=== PATIENT | male | born 1940 | race Caucasian/White ===

== ENCOUNTER 2017-10-07 11:47 | Observation (INO) | payer MEDICARE, OTHER ==
[2017-10-07] MEDS ORDERED: Atropine Sulfate 1 mg/10 ml Syringe ONE (11:59)
[2017-10-07 12:58] LABS: #Eosinphils 0.1 thou/uL (0.0-0.7); #Lymphocytes 0.8 thou/uL (1.20-3.40); #Monocytes 0.4 thou/uL (0.11-0.59); %Basophils 0.3 % (0.0-1.0); %Eosinophils 1.2 % (0.0-10.0); %Lymphocytes 12.7 % (21.0-51.0); %Monocytes 6.3 % (0.0-10.0); %Neutrophils 79.4 % (42.0-75.0); Hemoglobin 12.5 g/dL (14.0-18.0); Mean Corpuscular Hemoglobin 29.8 pg (27.0-31.0); Mean Corpuscular Volume 87.5 fL (78.0-98.0); Mean Platelet Volume 7.1 fL (7.4-10.4); Platelet Count 155 thou/uL (130-400); RBC Distribution Width 13.8 % (11.5-14.5); Red Blood Cell (RBC) Count 4.19 mill/uL (4.70-6.10); White Blood Cell (WBC) Count 6.3 thou/uL (4.8-10.8)
[2017-10-07 13:17] LABS: ALT (SGPT) Less than 7 U/L (8-55); AST (SGOT) 23 U/L (5-34); Albumin 3.8 g/dL (3.4-4.8); Alkaline Phosphatase 29 U/L (40-150); Anion Gap 12 mmol/L (10-20); BUN (Urea Nitrogen) 20 mg/dL (8.4-25.7); Bilirubin, Total 0.8 mg/dL (0.2-1.2); CK (CPK) 52 U/L (30-200); Calc. Creatinine Clearance 0 mL/min (70-130); Calcium 9.3 mg/dL (7.8-10.44); Carbon Dioxide 22 mmol/L (23-31); Chloride 102 mmol/L (98-107); Estimated GFR-MDRD 69; Globulin 2.8 g/dL (2.4-3.5); Glucose 95 mg/dL (83-110); Potassium 4.2 mmol/L (3.5-5.1); Protein, Total 6.6 g/dL (5.8-8.1); Sodium 132 mmol/L (136-145)
[2017-10-07 13:21] LABS: CKMB 1.8 ng/mL (0-6.6); Troponin I Less than 0.010 ng/mL (< 0.028)
--- NOTE | 2017-10-07 14:55 | CT ---
CT BRAIN WITHOUT CONTRAST: Date: 10/07/17 INDICATION: Syncope and weakness. COMPARISON: Prior exam dated 08/13/15. FINDINGS: No acute infarct, hemorrhage, or hydrocephalus is present. Septum pellucidum and third ventricle are midline. The skull and extracranial soft tissues are unremarkable. Mastoid air cells and paranasal si nuses are clear. Skull is intact. IMPRESSION: No acute intracranial abnormality. POS: [facility]
[2017-10-07 15:12] LABS: Acetaminophen Less than 6.0 mcg/mL (10.0-30.0); Alcohol Less than 10 mg/dL (Less than 10); Salicylate Less than 8.0 mg/dL (15.0-30.0)
--- NOTE | 2017-10-07 15:38 | RAD ---
AP VIEW OF THE CHEST: 10/07/17 INDICATION: History of syncope. COMPARISON: Prior exam dated 05/08/07. IMPRESSION: There is mild cardiomegaly. There is mild subsegmental atelectasis left lower lobe. Right lung is nick ar. There are mild vascular calcifications involving the thoracic aorta. No acute osseous abnormaliti es noted. POS: [facility]
[2017-10-07 16:41] LABS: Bilirubin Negative (Negative); Blood, Urine Negative (Negative); Clarity CLEAR (Clear); Glucose, Urine (Dipstick) Negative (Negative); Leukocyte Negative (Negative); Nitrite Negative (Negative); Protein, Urine (Dipstick) Negative (Neg-Trace); Specific Gravity, Urine 1.014 (1.002-1.036); pH, Urine 6.5 (5.0-9.0)
[2017-10-07] MEDS ORDERED: Dextrose 5% in Water 1,000 ML IV PRN (16:48)
[2017-10-07] MEDS ORDERED: HumaLOG 300 UNITS/3 ML VIAL SC PRN (16:48)
[2017-10-07] MEDS ORDERED: Acetaminophen 325 MG TAB PO PRN (16:48)
[2017-10-07] MEDS ORDERED: Dextrose 50% Abboject 50 ML SYRINGE SLOW IVP PRN (16:48)
[2017-10-07] MEDS ORDERED: Bisacodyl 5 MG TAB PO PRN (16:48)
[2017-10-07] MEDS ORDERED: Acetaminophen 650 MG Suppository PR PRN (16:48)
[2017-10-07 16:50] LABS: Amphetamine Not Detected (NotDetected); Barbiturates Screen Not Detected (NotDetected); Benzodiazepine Screen Not Detected (NotDetected); Cocaine Metabolite Screen Not Detected (NotDetected); Medtox Control Line Valid? VALID (VALID); Medtox Reader # READER 4; Methadone Not Detected (NotDetected); Methamphetamine Not Detected (NotDetected); Opiate Screen Not Detected (NotDetected); Oxycodone Screen Not Detected (NotDetected); Phencyclidine (PCP) Not Detected (NotDetected); THC/Cannabinoid Screen Not Detected (NotDetected); Tricyclic Screen Not Detected (NotDetected)
[2017-10-07 16:53] LABS: Troponin I Less than 0.010 ng/mL (< 0.028)
[2017-10-07] MEDS ORDERED: hydrALAZINE 20 MG/ML VIAL SLOW IVP PRN (17:03)
--- NOTE | 2017-10-07 17:21 | HP ---
CHIEF COMPLAINT: Syncope. PRIMARY CARE PROVIDER: Clark Luciano M.D. HISTORY OF PRESENT ILLNESS: Mr. Florez is a pleasant 77-year-old gentleman who was seen at [facility] on 10/07/2017. He was at get together around 11:00 a.m. today. He was sitting for a while on his walker. The cerem farhat was indoors. At the end of ceremony, he stood up. He felt very wobbly. He was eased into a carmelita ir. His eyes were rolled back. He was unconscious for approximately a minute. There is no history of any head trauma. There is no history of any tonic-clonic activity or urinary or fecal incontinenc e. He was therefore brought to the emergency room. He is currently feeling better. He recently started working with the physiotherapist. His heart rate is usually in the 50-60 range a t home. There has been no recent change to his home medications. He had a similar episode about 2 or 3 years ago. REVIEW OF SYSTEMS: All other systems reviewed and found to be negative. PAST MEDICAL HISTORY: Significant for diabetes mellitus type 2, hypertension, Parkinson's disease. PAST SURGICAL HISTORY: Right foot reconstruction and skin cancer removal from scalp. PSYCHIATRIC HISTORY: None. SOCIAL HISTORY: The patient reports occasional alcohol use. He denies any tobacco use or recreation al drug use. FAMILY HISTORY: No family history of premature coronary artery disease. ALLERGIES: PENICILLIN. CURRENT MEDICATIONS: Valsartan/hydrochlorothiazide 80/6.25 mg daily, carbidopa/levodopa 25/100 mg ta blets, 2.5 tablets 4 times a day, metoprolol succinate 50 mg daily, metformin 1000 mg 2 times a day, tamsulosin 0.4 mg daily. CODE STATUS: I discussed his code status. He is DNR. PHYSICAL EXAMINATION: GENERAL: Mr. Florez is awake and alert, not in acute distress. VITAL SIGNS: He is afebrile. Blood pressure is 136/61, pulse 63, respiratory rate 24, and oxygen sa turation 98% on room air. He is afebrile. When he presented to the emergency room, he had a pulse o f 45. EYES: No scleral icterus. No conjunctival pallor. ENT: Moist mucosal membranes, no oropharyngeal erythema or exudate. NECK: Supple, nontender, trachea is midline. RESPIRATORY: Accessory muscles of breathing are not active. Chest wall movements are symmetric bila terally. Lungs are clear to auscultation without wheeze, rhonchi or crepitations. CARDIOVASCULAR: S1 and S2 are heard, regular. Peripheral pulses palpable. No carotid bruit, no per icardial rub. ABDOMEN: Soft, nontender, bowel sounds are heard, no hepatomegaly, no splenomegaly. NEUROLOGIC: Cranial nerves II-XII intact, parkinsonian tremor present. MUSCULOSKELETAL: Power is 5/5 in all 4 extremities. SKIN: No rashes or subcutaneous nodules. LYMPHATIC: No cervical lymphadenopathy. PSYCHIATRIC: Normal mood, normal affect, patient is oriented to person, place, and time. LABORATORY DATA: Mr. Florez' labs and investigations were reviewed. I reviewed his electrocardiogra m, which shows sinus bradycardia with heart rate of 43, no ST changes to suggest an acute coronary sy ndrome. I also reviewed his chest x-ray, which does not show any pulmonary infiltrates. He has mild cardiomegaly. He also had noncontrast CT scan of the brain, which does not show any acute intracran ial abnormality. He has normal white count, normocytic anemia with hemoglobin 12.5, normal platelet count, hyponatremia with sodium of 132, mildly decreased carbon dioxide of 22, otherwise unremarkable comprehensive metabolic profile, normal troponin I x2, urinalysis positive for urobilinogen, negativ e for nitrites and leukocyte esterase and negative urine toxicology screen. ASSESSMENT AND PLAN: Mr. Florez is a pleasant 77-year-old gentleman who was seen at [facility] on 10/07/2017. His problem list includes: 1. Syncope: Likely secondary to bradycardia. Mr. Florez will be admitted to the hospital for [facility] er management, including telemetry monitoring. 2. Symptomatic bradycardia: Likely secondary to beta danya use. I will hold metoprolol. Cardiol ogy Service is also being consulted for opinion and help with management. 3. Diabetes mellitus type 2: Start Accu-Cheks and insulin sliding scale, continue metformin. 4. Parkinson's disease. Appears to be stable. Resume carbidopa/levodopa. 5. Hypertension: Beta danya is being held. Monitor vital signs and titrate antihypertensives as needed. LEVEL OF RISK: High. LEVEL OF COMPLEXITY: High.
[2017-10-07] MEDS: Carbidopa/Levodopa 25-100 mg Tablet PO SCH ×2 (18:18→21:23)
[2017-10-07 18:30] VITALS: BMI 24.5
[2017-10-07] MEDS: metFORMIN 500 MG TAB PO SCH (18:31)
[2017-10-07 19:38] LABS: Troponin I 0.021 ng/mL (< 0.028)
[2017-10-07 22:30] LABS: Troponin I 0.026 ng/mL (< 0.028)
[2017-10-08 05:24] LABS: #Eosinphils 0.1 thou/uL (0.0-0.7); #Lymphocytes 1.4 thou/uL (1.20-3.40); #Monocytes 0.5 thou/uL (0.11-0.59); #Neutrophils 2.9 thou/uL (1.40-6.50); %Basophils 0.2 % (0.0-1.0); %Eosinophils 2.7 % (0.0-10.0); %Lymphocytes 28.3 % (21.0-51.0); %Monocytes 9.6 % (0.0-10.0); %Neutrophils 59.2 % (42.0-75.0); Hemoglobin 11.2 g/dL (14.0-18.0); Mean Corpuscular HGB CONC 34.1 g/dL (32.0-36.0); Mean Corpuscular Hemoglobin 29.9 pg (27.0-31.0); Mean Corpuscular Volume 87.6 fL (78.0-98.0); Mean Platelet Volume 7.3 fL (7.4-10.4); Platelet Count 145 thou/uL (130-400); RBC Distribution Width 13.6 % (11.5-14.5); Red Blood Cell (RBC) Count 3.74 mill/uL (4.70-6.10); White Blood Cell (WBC) Count 4.8 thou/uL (4.8-10.8)
[2017-10-08 05:45] LABS: Anion Gap 11 mmol/L (10-20); BUN (Urea Nitrogen) 18 mg/dL (8.4-25.7); Calc. Creatinine Clearance 83 mL/min (70-130); Carbon Dioxide 22 mmol/L (23-31); Chloride 104 mmol/L (98-107); Estimated GFR-MDRD 83; Glucose 82 mg/dL (83-110); Potassium 3.7 mmol/L (3.5-5.1); Sodium 133 mmol/L (136-145)
[2017-10-08] MEDS: metFORMIN 500 MG TAB PO SCH ×2 (08:25→16:52)
[2017-10-08] MEDS: Carbidopa/Levodopa 25-100 mg Tablet PO SCH ×3 (08:26→16:51)
[2017-10-08] MEDS ORDERED: Hydrochlorothiazide 25 MG TAB PO SCH (09:00)
[2017-10-08] MEDS ORDERED: Valsartan 80 MG TAB PO SCH (09:00)
[2017-10-08] MEDS ORDERED: Tamsulosin HCl 0.4 MG CAP PO SCH (09:00)
--- NOTE | 2017-10-08 15:46 | PDOC.PN ---
- Subjective Encounter Start Date: 10/08/17 Encounter Start Time: 15:41 Pt seen for followup re: syncope. Denies chest pain, shortness of breath, fevers or chills. No nausea or vomiting. - Objective Resuscitation Status: Resuscitation Status DNR:Do Not Resuscitate MAR Reviewed: Yes Vital Signs & Weight: Vital Signs (12 hours) Temp Pulse Resp BP BP Pulse Ox 10/08/17 11:24 98.3 F 70 21 H 105/53 L 94 L 10/08/17 08:33 97.9 F 50 L 22 H 180/79 H 97 10/08/17 08:32 97.9 F 50 L 22 H 10/08/17 04:00 97.7 F 60 12 150/68 H 95 Weight Weight 186 lb 1 oz I&O: 10/07/17 10/08/17 10/09/17 06:59 06:59 06:59 Intake Total 600 Balance 600 Result Diagrams: 10/08/17 05:07 10/08/17 05:07 Additional Labs: Accuchecks 10/08/17 10/08/17 10/07/17 10:39 06:00 21:16 POC Glucose 98 73 221 H EKG Reviewed by me: Yes (Tele: sinus bradycardia) Phys Exam - Physical Examination Constitutional: NAD HEENT: moist MMs Neck: supple Respiratory: clear to auscultation bilateral S1, S2, reg, gerardo Gastrointestinal: soft Neurological: moves all 4 limbs Psychiatric: normal affect Dx/Plan (1) Syncope Code(s): R55 - SYNCOPE AND COLLAPSE Status: Acute Comment: no recurrence, likely due to bradycardia (2) Symptomatic sinus bradycardia Code(s): R00.1 - BRADYCARDIA, UNSPECIFIED Status: Acute Comment: Beta danya on hold, continue to monitor (3) DM2 (diabetes mellitus, type 2) Status: Chronic Comment: controlled (4) Parkinson disease Code(s): G20 - PARKINSON'S DISEASE Status: Acute Comment: stable, continue carbidopa/levodopa - Plan * . Review of Systems - Review of Systems Respiratory: negative: Cough, Shortness of Breath, SOB with Excertion, Pleuritic Pain, Wheezing Cardiovascular: negative: chest pain, palpitations, orthopnea, paroxysmal nocturnal dyspnea, edema, light headedness - Medications/Allergies Allergies/Adverse Reactions: Allergies Allergy/AdvReac Type Severity Reaction Status Date / Time Penicillins Allergy Verified 10/07/17 16:46 Medications: Current Medications Acetaminophen (Tylenol) 650 mg PO Q4H PRN PRN Reason: Headache/Fever or Pain Acetaminophen (Tylenol) 650 mg MS Q4H PRN PRN Reason: Headache/Fever or Pain Bisacodyl (Dulcolax) 10 mg PO DAILYPRN PRN PRN Reason: Constipation Carbidopa/Levodopa (Sinemet 25-100) 2.5 tab PO QID [facility] Last Admin: 10/08/17 13:00 Dose: 2.5 tab Dextrose/Water (Dextrose 50%) 25 gm SLOW IVP PRN PRN PRN Reason: Hypoglycemia Glucagon (Glucagon) 1 mg IM PRN PRN PRN Reason: Hypoglycemia Hydralazine HCl (Apresoline) 10 mg SLOW IVP Q6H PRN PRN Reason: SBP Greater Than 170 Hydrochlorothiazide (Hydrochlorothiazide) 6.25 mg PO DAILY [facility] Last Admin: 10/08/17 08:26 Dose: 6.25 mg Dextrose/Water (D5w) 1,000 mls @ 0 mls/hr IV .Q0M PRN PRN Reason: Hypoglycemia Insulin Human Lispro (Humalog) 0 units SC .MILD SLIDING SCALE PRN PRN Reason: Mild Correctional Scale Last Admin: 10/07/17 21:22 Dose: 3 unit Metformin HCl (Glucophage) 1,000 mg PO BID-[facility] Last Admin: 10/08/17 08:25 Dose: 1,000 mg Tamsulosin HCl (Flomax) 0.4 mg PO DAILY [facility] Last Admin: 10/08/17 08:25 Dose: 0.4 mg Valsartan (Diovan) 80 mg PO DAILY [facility] Last Admin: 10/08/17 08:25 Dose: 80 mg
[2017-10-08 16:29] VITALS: BP 104/55
[2017-10-08 16:31] VITALS: TEMP 97.3
--- NOTE | 2017-10-08 16:34 | CON ---
DATE OF CONSULTATION: 10/08/2017 CARDIOLOGY CONSULTATION REASON FOR CONSULTATION: Syncope. HISTORY OF PRESENT ILLNESS: Mr. Florez is a very pleasant 77-year-old white gentleman who comes to [facility] after a syncopal spell. He was at a ceremony and he was sitting down for a while. When he stood up, he felt very lightheaded, had to sit back down, rolled his eyes out and lost consciousne ss for about a minute. He was brought into the hospital for this. tells me that he has had the se episodes in the recent past. He always gets lightheaded when he stands up. He has never passed o ut completely like he did this time, but he has been close to this before. He has had some of his bl ood pressure medications adjusted as his blood pressure drops when he stands up. On initial evaluati on, his heart rate was in the mid 40s, so Cardiology is being consulted for possible pacemaker. He i s on a beta danya. PAST MEDICAL HISTORY: 1. Type 2 diabetes. 2. Hypertension. 3. Parkinson's disease. PAST SURGICAL HISTORY: 1. Right foot reconstruction. 2. Skin cancer removal from scalp. SOCIAL HISTORY: Occasional social alcohol use, no tobacco or drug use. FAMILY HISTORY: Noncontributory. ALLERGIES: PENICILLIN. OUTPATIENT MEDICATIONS: 1. Valsartan, hydrochlorothiazide 80/6.25 a day. 2. Carbidopa/levodopa. 3. Metoprolol succinate 50 mg a day. 4. Metformin 1000 mg twice a daily. 5. Tamsulosin. REVIEW OF SYSTEMS: Twelve-point review of systems was done and is all negative unless stated in the history of present illness. PHYSICAL EXAMINATION: VITAL SIGNS: Temperature 98.3, pulse 70, respiratory rate 21, satting 94% on room air, blood pressur e 105/53 standing, sitting down 180/79. GENERAL: Awake, alert, oriented x3, in no distress. HEENT: Normocephalic, atraumatic. NECK: Supple. LUNGS: Clear. CARDIOVASCULAR: S1, S2, no S3, S4, no murmurs. ABDOMEN: Soft, positive bowel sounds. EXTREMITIES: No edema. SKIN: Warm and dry. LABORATORY DATA: Laboratory work was reviewed. White count 6.3, hemoglobin 12.5, hematocrit 36, kiran telet count 155. Chemistries unremarkable except for sodium of 133, potassium 3.7. Troponin negativ e x3. UA was unremarkable. Toxicology was undetectable. IMAGING DATA: EKG was reviewed. Telemetry was reviewed. ASSESSMENT AND PLAN: 1. Syncope. 2. Orthostatic hypotension. 3. Hypertension. PLAN: 1. Would stop his metoprolol completely for now to avoid bradycardia. We will also recommend that h e only treat his standing blood pressure rise in his sitting or lying down blood pressure as this is most likely going to be higher. I think he should be able to go home. His episode was most likely f rom orthostatic hypotension. We will have him check his blood pressures at home standing up. We hav e recommended that he stands up really slowly and that he does not go around without his walker as th is has a chair for him to be able to sit down, so he will not hurt himself. 2. Should be able to be discharged home today. Follow up in my office in one month with blood press ure reading standing up. Thank you for letting us to participate in the care of your patient. We will sign off. Please call with any questions.
--- NOTE | 2017-10-08 19:17 | DIS ---
DATE OF ADMISSION: 10/07/2017 DATE OF DISCHARGE: 10/08/2017 PRIMARY CARE PROVIDER: Clark Luciano M.D. DISCHARGE DIAGNOSES: 1. Syncope. 2. Symptomatic bradycardia. 3. Orthostatic hypotension. CONDITION OF PATIENT ON THE DAY OF DISCHARGE: Stable. I assessed Mr. Florez on the day of discharge . Please refer to my daily progress note for further details regarding this [id number] encounter. CONSULTATIONS DURING THIS HOSPITALIZATION: Cardiology, Dr. Mary. HOSPITAL COURSE: Mr. Florez is a pleasant 77-year-old gentleman who was admitted to [facility] on observation status on 10/07/2017 following a syncopal episode. He was found to be in sinus bradycardia. Beta danya was discontinued and his heart rate improved. He was seen by Cardiology Service who will follow up with him as outpatient. He also had orthostatic hypotension. He has been advised regarding strategies to minimize blood pres sure drops including getting up slowly from a lying position in stages as well as wearing stockings. He has also been advised to check his blood pressure and heart rate 3 times a day and shows readings to his primary care provider. He has also been advised to take his losartan and hydrochlorothiazide at bedtime instead of in the morning to see if it will help with orthostatic hypotension during the daytime. On the day of discharge, he has white count 4800, hemoglobin 11.2, platelet count 145,000. Sodium 13 3, potassium 3.7, and creatinine 0.89. DISCHARGE MEDICATIONS: Losartan/hydrochlorothiazide 80/6.25 mg at bedtime, Sinemet 2.5 tablets orall y 4 times a day, fenofibrate 145 mg daily, Lantus insulin 10 units at bedtime, metformin 1000 mg 2 ti mes a day, tamsulosin 0.4 mg at bedtime. Many thanks for allowing me to participate in your patient's care. Please feel free to contact me wi th any questions or concerns. DISCHARGE DESTINATION: Home. ADDENDUM: Mr. Florez had a urinalysis at the time of admission, which only showed urobilinogen and w as negative for nitrite and leukocyte esterase. He also did not have any dysuria or increased freque ncy of urination. However, urine cultures were growing [facility]. I had a lengthy discussion with Mr. Florez and his . Jocelyn jauregui he is asymptomatic, I am not starting him on antibiotics at this time. I have advised him to seek medical help for any new or worsening symptoms, including dysuria or increasing frequency of urinatio n. He will also follow up with his primary care provider for the final culture report.
--- NOTE | 2017-10-14 20:13 | EKG ---
Test Reason : BRADYCARDIA Blood Pressure : / mmHG Vent. Rate : 043 BPM Atrial Rate : 043 BPM P-R Int : 180 ms QRS Dur : 108 ms QT Int : 514 ms P-R-T Axes : 068 010 111 degrees QTc Int : 434 ms Marked sinus bradycardia Inferior infarct , age undetermined Abnormal ECG Confirmed by REGINE REY ([id number]), content editor KAYLEE SHANKS ([id number]) on 10/14/2017 8:13:05 PM Referred By: Confirmed By:REGINE REY
== END 2017-10-08 18:54 | disposition home or self-care (01) ==
LOC: ERS 11:47 → 2NO 15:36
PROVIDERS: ADMIT Internal Medicine; ATTEND Internal Medicine
DX: I95.1 Orthostatic hypotension (principal); R00.1 Bradycardia, unspecified; E11.9 Type 2 diabetes mellitus without complications; I10 Essential (primary) hypertension; G20 Parkinson's disease; Z88.0 Allergy status to penicillin; Z79.84 Long term (current) use of oral hypoglycemic drugs; Z79.899 Other long term (current) drug therapy
CPT/HCPCS: 70450; 71045; 80048; 80053; 80306; 80307; 81003; 82550; 82553; 82962 ×2; 84484 ×2; 85025 ×2; 87086; 87186; 93005; 96374; 97139; 99285; G0378 ×2; 36415; 36416; J0360; J0461

== ENCOUNTER 2017-10-10 16:06 | Emergency (ER) | payer MEDICARE, OTHER ==
[2017-10-10 16:42] LABS: #Eosinphils 0.1 thou/uL (0.0-0.7); #Lymphocytes 1.2 thou/uL (1.20-3.40); #Monocytes 0.5 thou/uL (0.11-0.59); #Neutrophils 3.8 thou/uL (1.40-6.50); %Basophils 0.3 % (0.0-1.0); %Lymphocytes 21.3 % (21.0-51.0); %Monocytes 8.1 % (0.0-10.0); %Neutrophils 68.2 % (42.0-75.0); Hemoglobin 12.4 g/dL (14.0-18.0); Mean Corpuscular HGB CONC 34.1 g/dL (32.0-36.0); Mean Corpuscular Hemoglobin 29.8 pg (27.0-31.0); Mean Corpuscular Volume 87.4 fL (78.0-98.0); Mean Platelet Volume 7.5 fL (7.4-10.4); Platelet Count 190 thou/uL (130-400); RBC Distribution Width 13.6 % (11.5-14.5); Red Blood Cell (RBC) Count 4.17 mill/uL (4.70-6.10); White Blood Cell (WBC) Count 5.5 thou/uL (4.8-10.8)
[2017-10-10 17:02] LABS: ALT (SGPT) 7 U/L (8-55); AST (SGOT) 24 U/L (5-34); Albumin 3.9 g/dL (3.4-4.8); Alkaline Phosphatase 33 U/L (40-150); Anion Gap 15 mmol/L (10-20); BUN (Urea Nitrogen) 21 mg/dL (8.4-25.7); Bilirubin, Total 0.6 mg/dL (0.2-1.2); Calc. Creatinine Clearance 0 mL/min (70-130); Calcium 9.4 mg/dL (7.8-10.44); Carbon Dioxide 19 mmol/L (23-31); Chloride 101 mmol/L (98-107); Estimated GFR-MDRD 66; Globulin 2.7 g/dL (2.4-3.5); Glucose 133 mg/dL (83-110); Potassium 3.8 mmol/L (3.5-5.1); Protein, Total 6.6 g/dL (5.8-8.1); Sodium 131 mmol/L (136-145)
[2017-10-10 17:17] LABS: CKMB 2.9 ng/mL (0-6.6); Troponin I 0.017 ng/mL (< 0.028)
--- NOTE | 2017-10-10 19:04 | CT ---
NONCONTRAST CT HEAD: 10/10/17 HISTORY: Trauma. Patient tripped and fell. COMPARISON: 10/07/17. FINDINGS: There is no evidence of an acute cortical infarction, hemorrhage, mass effect, or midline shift. Mild cerebral volume loss is again noted. The ventricular system is normal in size, shape and position. M ild cerebellar volume loss is present. There has been no interval change when compared to the prior e xam. No calvarial fracture is present. IMPRESSION: 1. No acute intracranial abnormalities are demonstrated. 2. Mild cerebral and cerebellar volume loss. POS: [facility]
== END 2017-10-10 18:43 | disposition home or self-care (01) ==
LOC: ERS 16:06
DX: S00.93XA Contusion of unspecified part of head, initial encounter (principal); N39.0 Urinary tract infection, site not specified; E11.9 Type 2 diabetes mellitus without complications; I10 Essential (primary) hypertension; G20 Parkinson's disease; Z79.899 Other long term (current) drug therapy; Z79.84 Long term (current) use of oral hypoglycemic drugs; W01.0XXA Fall on same level from slipping, tripping and stumbling without subsequent striking against object, initial encounter
CPT/HCPCS: 36415; 70450; 80053; 82553; 84484; 85025; 93005

== ENCOUNTER 2018-01-22 19:18 | Emergency (ER) | payer MEDICARE, OTHER ==
--- NOTE | 2018-01-22 21:23 | RAD ---
RIGHT HIP RADIOGRAPHS TWO VIEWS: 01/22/2018 PROVIDED CLINICAL HISTORY: Right hip pain, status post injury. FINDINGS: There is a linear area of radiolucency involving the region of the right acetabulum, on the frogleg l ateral view. This is not definitely seen on the frontal projection and may be artifactual. The righ t hip joint space appears preserved. Alignment appears anatomic. IMPRESSION: Probably artifactual linear radiolucency overlying the right acetabulum. If there is concern for an acetabular fracture, consider CT. POS: [facility]
--- NOTE | 2018-01-22 21:24 | RAD ---
RIGHT KNEE FOUR VIEWS: 01/22/2018 HISTORY: Fall. Injury. Trauma. Pain. COMPARISON: None. FINDINGS: There is enthesophyte formation at the origin of the patellar tendon and at the insertion of the quad riceps tendon. There is mild soft tissue swelling anterior to the region of the patellar tendon. Th ere is atherosclerotic calcification posterior to the distal right femur and proximal right tibia. N o acute fracture or evidence of dislocation is seen. IMPRESSION: No acute fracture or evidence of dislocation. POS: [facility]
[2018-01-22 21:31] LABS: #Eosinphils 0.1 thou/uL (0.0-0.7); #Lymphocytes 0.9 thou/uL (1.20-3.40); #Monocytes 0.4 thou/uL (0.11-0.59); #Neutrophils 4.6 thou/uL (1.40-6.50); %Basophils 0.1 % (0.0-1.0); %Eosinophils 1.1 % (0.0-10.0); %Lymphocytes 15.1 % (21.0-51.0); %Monocytes 7.1 % (0.0-10.0); %Neutrophils 76.6 % (42.0-75.0); Hemoglobin 8.7 g/dL (14.0-18.0); Mean Corpuscular HGB CONC 33.1 g/dL (32.0-36.0); Mean Corpuscular Hemoglobin 29.2 pg (27.0-31.0); Mean Corpuscular Volume 88.3 fL (78.0-98.0); Mean Platelet Volume 8.4 fL (7.4-10.4); Platelet Count 146 thou/uL (130-400); RBC Distribution Width 14.2 % (11.5-14.5); Red Blood Cell (RBC) Count 2.99 mill/uL (4.70-6.10); White Blood Cell (WBC) Count 6.1 thou/uL (4.8-10.8)
[2018-01-22 21:36] LABS: INR-International Normal Ratio 1.2; Prothrombin Time 15.4 SEC (12.0-14.7)
[2018-01-22 21:53] LABS: ALT (SGPT) Less than 7 U/L (8-55); AST (SGOT) 17 U/L (5-34); Albumin 3.7 g/dL (3.4-4.8); Alkaline Phosphatase 32 U/L (40-150); Anion Gap 11 mmol/L (10-20); BUN (Urea Nitrogen) 26 mg/dL (8.4-25.7); Bilirubin, Total 0.4 mg/dL (0.2-1.2); Calc. Creatinine Clearance 0 mL/min (70-130); Calcium 9.2 mg/dL (7.8-10.44); Carbon Dioxide 22 mmol/L (23-31); Chloride 106 mmol/L (98-107); Estimated GFR-MDRD 78; Globulin 2.1 g/dL (2.4-3.5); Glucose 121 mg/dL (83-110); Potassium 4.1 mmol/L (3.5-5.1); Protein, Total 5.8 g/dL (5.8-8.1); Sodium 135 mmol/L (136-145)
== END 2018-01-22 23:01 | disposition home or self-care (01) ==
LOC: ERS 19:18
DX: M25.561 Pain in right knee (principal); I10 Essential (primary) hypertension; E11.9 Type 2 diabetes mellitus without complications; G20 Parkinson's disease; Z79.82 Long term (current) use of aspirin; Z79.84 Long term (current) use of oral hypoglycemic drugs; Z79.899 Other long term (current) drug therapy; W17.89XA Other fall from one level to another, initial encounter
CPT/HCPCS: 36415; 80053; 85025; 85610; 85730

== ENCOUNTER 2018-02-13 08:44 | Inpatient (IN) | payer MEDICARE, OTHER ==
[2018-02-13 09:27] LABS: #Lymphocytes 0.5 thou/uL (1.20-3.40); #Monocytes 0.4 thou/uL (0.11-0.59); #Neutrophils 4.4 thou/uL (1.40-6.50); %Eosinophils 0.6 % (0.0-10.0); %Lymphocytes 9.9 % (21.0-51.0); %Monocytes 7.3 % (0.0-10.0); %Neutrophils 82.2 % (42.0-75.0); Mean Corpuscular HGB CONC 33.5 g/dL (32.0-36.0); Mean Corpuscular Hemoglobin 28.6 pg (27.0-31.0); Mean Corpuscular Volume 85.5 fL (78.0-98.0); Mean Platelet Volume 6.9 fL (7.4-10.4); Platelet Count 266 thou/uL (130-400); RBC Distribution Width 13.9 % (11.5-14.5); Red Blood Cell (RBC) Count 3.49 mill/uL (4.70-6.10); White Blood Cell (WBC) Count 5.3 thou/uL (4.8-10.8)
[2018-02-13 09:48] LABS: ALT (SGPT) Less than 7 U/L (8-55); AST (SGOT) 20 U/L (5-34); Albumin 3.7 g/dL (3.4-4.8); Alkaline Phosphatase 34 U/L (40-150); Anion Gap 11 mmol/L (10-20); BUN (Urea Nitrogen) 9 mg/dL (8.4-25.7); Bilirubin, Total 0.8 mg/dL (0.2-1.2); Calc. Creatinine Clearance 0 mL/min (70-130); Calcium 8.5 mg/dL (7.8-10.44); Carbon Dioxide 22 mmol/L (23-31); Chloride 87 mmol/L (98-107); Estimated GFR-MDRD Greater than 90; Globulin 2.3 g/dL (2.4-3.5); Glucose 159 mg/dL (83-110); Potassium 3.9 mmol/L (3.5-5.1)
[2018-02-13 09:50] LABS: Sodium 116 mmol/L (136-145)
--- NOTE | 2018-02-13 10:36 | RAD ---
FRONTAL VIEW CHEST: COMPARISON: 10/07/2017. INDICATION: Dyspnea. FINDINGS: There are bibasilar densities indicating pleural fluid with adjacent atelectasis and/or pneumonia. B ilateral vascular congestion present with enlargement of cardiac silhouette. There is vascular calci fication overlying the aorta. IMPRESSION: Findings which favor decompensated congestive heart failure with bilateral mild to moderate pleural e ffusions. Adjacent atelectasis and/or pneumonia at the lung bases is not excluded. Recommend follow up to resolution with 2-view chest series. POS: [facility]
[2018-02-13] MEDS ORDERED: Nitroglycerin 2% Ointment 1 INCH/1 GM Packet ONE (11:38)
[2018-02-13] MEDS ORDERED: Aspirin 325 MG TAB ONE (11:38)
[2018-02-13] MEDS ORDERED: Furosemide 20 MG/2 ML VIAL ONE (11:38)
[2018-02-13] MEDS ORDERED: Acetaminophen 325 MG TAB PO PRN (13:43)
[2018-02-13] MEDS ORDERED: Dextrose 5% in Water 1,000 ML IV PRN (13:43)
[2018-02-13] MEDS ORDERED: HumaLOG 300 UNITS/3 ML VIAL SC PRN (13:43)
[2018-02-13] MEDS ORDERED: Dextrose 50% Abboject 50 ML SYRINGE SLOW IVP PRN (13:43)
[2018-02-13] MEDS ORDERED: Guaifenesin DM 100-10/5 ML UDCUP PO PRN (13:43)
[2018-02-13 13:46] LABS: Troponin I 0.018 ng/mL (< 0.028)
[2018-02-13] MEDS ORDERED: Furosemide 40 MG/4 ML VIAL ONE (16:07)
[2018-02-13] MEDS: Furosemide 40 MG/4 ML VIAL SLOW IVP SCH (16:10)
[2018-02-13 16:47] LABS: Troponin I 0.016 ng/mL (< 0.028)
--- NOTE | 2018-02-13 17:09 | HP ---
REASON FOR ADMISSION: Acute CHF exacerbation. This is new onset. HISTORY OF PRESENTING ILLNESS: The patient gives history of shortness of breath from last four years which got worse from last 2 days. He has had cough with expectoration of clear sputum from last few days now. The patient also has had trouble urinating for the last 2 to 3 days now. No complaints of fever. He normally uses a walker and ambulates inside the house. No complaints of chest pain or palpitation. He was never told he had heart failure in the past. The last stress test was more than 10 years back. 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 Skin cancer removal from the hand. CURRENT MEDICATION: Please note, the patient does not recall all of his medications. He goes to [facility] on [facility]. He knows he takes Lantus 10 units at bedtime, aspirin 2 tablets, likely baby aspirin. We will try to obtain his medications from his pharmacy. ALLERGIES: ALLERGIC TO PENICILLIN. PERSONAL HISTORY: Does not abuse alcohol or drugs. No history of smoking. He lives with his . FAMILY HISTORY: Both parents of natural causes. Mother was 96. Father was 98. CODE STATUS: DNAR. Power of body stylist is his . The patient has a living will as well. REVIEW OF SYSTEMS: CONSTITUTIONAL: Negative for weight loss or gain, ability to conduct usual activities. SKIN: Negative for rash, itching. EYES: Negative for double vision, pain. ENT/MOUTH: Negative for nose bleeding, neck stiffness, pain, tenderness. CARDIOVASCULAR: Negative for palpitations, dyspnea on exertion, orthopnea. RESPIRATORY: Negative for shortness of breath, wheezing, cough, hemoptysis, fever or night sweats. GASTROINTESTINAL: Negative for poor appetite, abdominal pain, heartburn, nausea , vomiting, constipation, or diarrhea. GENITOURINARY: Negative for urgency, frequency, dysuria, nocturia. MUSCULOSKELETAL: Negative for pain, swelling. NEUROLOGIC/PSYCHIATRIC: Negative for anxiety, depression. ALLERGY/IMMUNOLOGIC: Negative for skin rash, bleeding tendency. PHYSICAL EXAMINATION: GENERAL: The patient is a 78-year-old male, who is currently in mild respiratory distress. VITAL SIGNS: Blood pressure 150/76, pulse 76 per minute, respiratory rate 24 per minute, temperature 97.7 degrees Fahrenheit, saturating 98% on room air. NECK: Supple. No elevated JVD. HEENT: Eyes, extraocular muscles intact. Pupils reacting to light. Oral cavity, mucous membranes are dry. No exudates or congestion. CARDIOVASCULAR: S1 and S2 heard. Regular rhythm. RESPIRATORY: Air entry 1+ bilateral, rales plus in the infrascapular area. ABDOMEN: Soft. Bowel sounds heard. No tenderness, rigidity, or guarding. EXTREMITIES: There is peripheral edema 1+ bilateral. No ischemic ulcerations or gangrene. CENTRAL NERVOUS SYSTEM: No gross focal deficits noted. The patient is alert, awake, and oriented well. PSYCHIATRIC: Patient's mood is euthymic. No hallucinations or delusions. LABORATORY DATA: EKG done shows normal sinus rhythm at 85 beats per minute. There are Q-waves seen in leads 2, 3, aVF. White count of 5, H and H 10 and 29, platelet count 266, MCV is 85 with 82% neutrophils. Sodium 116, serum bicarb 22, BUN 9, creatinine 0.6, serum glucose 159. Liver enzymes within normal limits. First set of troponin was 0.03, second set is 0.01. CK-MB 5.0. BNP 1872.3. Albumin is 3.7. Influenza A and B antigens are negative. Chest x-ray done shows pulmonary vascular congestion. CLINICAL IMPRESSION AND PLAN: The patient will be admitted to telemetry for acute new onset congestive heart failure exacerbation. He will be on Lasix 40 mg IV q.12 hourly. We will also increase his Flomax to 0.4 mg twice daily. The patient has known history of benign prostatic hypertrophy. Echo with 2D Doppler will be obtained for LV function. The patient has inferior wall changes, likely chronic on his EKG. His troponin has trended back to normal from indeterminate range on arrival, likely demand ischemia from congestive heart failure. He will be on Coreg, aspirin, small dose of lisinopril for now. We will obtain all his home medication list from [facility] on [facility]. Cardiology consultation with Dr. Arredondo and Nephrology consultation with Dr. Smith will be obtained. TSH level will be obtained with the morning labs. The patient's hyponatremia is secondary to congestive heart failure and syndrome of inappropriate secretion of antidiuretic hormone. We will closely trend his sodium levels as well. He is currently fully oriented. Job ID: [id number] [facility]ALEna
[2018-02-13 18:01] LABS: Bilirubin Negative (Negative); Blood, Urine Negative (Negative); Clarity CLEAR (Clear); Glucose, Urine (Dipstick) Negative (Negative); Leukocyte Negative (Negative); Nitrite Negative (Negative); Protein, Urine (Dipstick) Negative (Neg-Trace); Urobilinogen 0.2 mg/dL (0.2-1.0)
[2018-02-13 18:08] LABS: Specific Gravity, Urine 1.001 (1.002-1.036)
[2018-02-13] MEDS: Carbidopa/Levodopa 25-100 mg Tablet PO SCH ×2 (18:14→21:58)
[2018-02-13] MEDS ORDERED: INSULIN GLARGINE HUM REC ANLOG 10 UNIT SC SCH (21:00)
[2018-02-13] MEDS: Carvedilol 3.125 MG TAB PO SCH (21:59)
[2018-02-13] MEDS: Famotidine 20 MG TAB PO SCH (22:00)
[2018-02-13] MEDS: Insulin Glargine 10 UNITS in Pre-Filled Syringe 1 EACH SC SCH (22:00)
[2018-02-13] MEDS: metFORMIN 500 MG TAB PO SCH (22:01)
[2018-02-13] MEDS: Tamsulosin HCl 0.4 MG CAP PO SCH (22:01)
--- NOTE | 2018-02-14 03:04 | CON ---
DATE OF CONSULTATION: 02/13/2018 CONSULTING PHYSICIAN: Russ Smith MD REQUESTING PHYSICIAN: Dr. Silver. REASON FOR CONSULTATION: Hyponatremia. IMPRESSION: Hyponatremia, query cause. Potential etiologies include but not limited to the followin. Dilutional hyponatremia in the context of congestive heart failure or fluid overload. 2. Poor p.o. osmolar intake in the context of hyperosmolar hyponatremia. 3. Cannot completely rule out syndrome of inappropriate antidiuretic hormone. PLAN: 1. Identify what type of hyponatremia this patient has by checking urine sodium and urine osmolality. 2. If this proved to be SIADH, we will recommend the use of anti-ADH hormone even if there is a component of CHF as this can also help in the management of fluid in a patient with CHF. 3. Change the patient's diet to high-protein in the way of animal meat. 4. Further management to be dependent on the clinical course. HISTORY OF PRESENT ILLNESS: A 78-year-old gentleman, who presented here with some shortness of breath with some evidence of peripheral edema. The patient has not been eating well for the past few days according to the and somewhat confused in the evening though the attributed this to the fall as the patient has Parkinson's disease. The patient on presentation was noted with a sodium of 116 that was the need for renal consultation. PAST MEDICAL HISTORY: Significant for: 1. Type 2 diabetes. 2. CVA. 3. Parkinson disease. 4. Hypertension. MEDICATIONS: Reviewed and no comprehensive list is available at this point. FAMILY HISTORY: Not significantly related to present illness. SOCIAL HISTORY: The patient , living with . No alcohol. No illicit drug use. ALLERGIES: TO PENICILLIN. REVIEW OF SYSTEMS: As documented in the body of the history. All the other systems were reviewed and found not to be significantly related to presenting illness. PHYSICAL EXAMINATION: GENERAL: The patient was found not to be in any obvious distress. VITAL SIGNS: Afebrile. Temperature 98.1, pulse 74, respiratory rate of 18, O2 saturations 96% with blood pressure 142/72. HEENT: Unremarkable. Moist oral mucosa. NECK: Supple. No conjunctival injection or icterus. CARDIOVASCULAR: First and second heart sounds were heard. RESPIRATORY: Clear to auscultation anteriorly. DIGESTIVE: Revealed a benign abdomen. EXTREMITIES: Some peripheral edema. SKIN: No new gross rash. LYMPHATICS: No peripheral lymphadenopathy. SUMMARY: A 78-year-old gentleman, who presented here with some shortness of breath. Noted to be severely hyponatremic with sodium of 116. Thank you for this consultation. We will follow with you. Job ID: [id number]
[2018-02-14] MEDS: Furosemide 40 MG/4 ML VIAL SLOW IVP SCH (05:42)
[2018-02-14 05:51] LABS: #Eosinphils 0.1 thou/uL (0.0-0.7); #Lymphocytes 0.8 thou/uL (1.20-3.40); #Monocytes 0.6 thou/uL (0.11-0.59); #Neutrophils 4.7 thou/uL (1.40-6.50); %Lymphocytes 13.1 % (21.0-51.0); %Monocytes 9.8 % (0.0-10.0); Mean Corpuscular HGB CONC 33.4 g/dL (32.0-36.0); Mean Corpuscular Hemoglobin 28.6 pg (27.0-31.0); Mean Corpuscular Volume 85.5 fL (78.0-98.0); Mean Platelet Volume 6.9 fL (7.4-10.4); Platelet Count 217 thou/uL (130-400); RBC Distribution Width 13.8 % (11.5-14.5); Red Blood Cell (RBC) Count 3.13 mill/uL (4.70-6.10); White Blood Cell (WBC) Count 6.2 thou/uL (4.8-10.8)
[2018-02-14 06:10] LABS: Anion Gap 11 mmol/L (10-20); BUN (Urea Nitrogen) 9 mg/dL (8.4-25.7); Calc. Creatinine Clearance 110 mL/min (70-130); Calcium 8.3 mg/dL (7.8-10.44); Carbon Dioxide 25 mmol/L (23-31); Chloride 84 mmol/L (98-107); Estimated GFR-MDRD Greater than 90; Glucose 98 mg/dL (83-110); Potassium 3.5 mmol/L (3.5-5.1)
[2018-02-14 06:12] LABS: Sodium 116 mmol/L (136-145)
[2018-02-14 08:04] LABS: Sodium, Urine 91 mmol/L (Not Available)
[2018-02-14 08:05] LABS: Osmolality, Urine 304 mOsm/kg (300-900)
[2018-02-14] MEDS: Lisinopril 2.5 MG TAB PO SCH (09:29)
[2018-02-14] MEDS: Enoxaparin Sodium 40 MG/0.4 ML SYRINGE SC SCH (09:29)
[2018-02-14] MEDS: metFORMIN 500 MG TAB PO SCH ×2 (09:30→21:38)
[2018-02-14] MEDS: Carbidopa/Levodopa 25-100 mg Tablet PO SCH ×4 (09:30→21:37)
[2018-02-14] MEDS: Fenofibrate Nanocrystallized 145 MG TAB PO SCH (09:30)
[2018-02-14] MEDS: Famotidine 20 MG TAB PO SCH ×2 (09:30→21:38)
[2018-02-14] MEDS: Tamsulosin HCl 0.4 MG CAP PO SCH ×2 (09:31→21:38)
[2018-02-14] MEDS: Carvedilol 3.125 MG TAB PO SCH (10:10)
--- NOTE | 2018-02-14 10:39 | PDOC.PN ---
- Subjective Encounter Start Date: 02/14/18 Encounter Start Time: 08:00 Subjective: sob is better -: has not ambulated yet, is passing urine without difficulty per patient - Objective Resuscitation Status - Order Detail: 02/13/18 13:33 Resuscitation Status Routine Resuscitation Status: DNAR: NO Resuscitation Discussed with: d/w patient at bedside, POA is his , he has living will MAR Reviewed: Yes Vital Signs & Weight: Vital Signs (12 hours) Temp Pulse Resp BP Pulse Ox 02/14/18 07:35 97.6 F 66 18 157/78 H 95 02/14/18 04:00 98.1 F 68 20 146/75 H 94 L Weight Weight 190 lb 14.4 oz Result Diagrams: 02/14/18 05:21 02/14/18 05:21 Additional Labs: Accuchecks 02/14/18 02/14/18 02/13/18 05:51 00:15 20:53 POC Glucose 116 H 152 H 145 H Phys Exam - Physical Examination HEENT: PERRLA, moist MMs Neck: no JVD, supple Respiratory: no wheezing rales++ Cardiovascular: RRR, no significant murmur Gastrointestinal: soft, non-tender, positive bowel sounds Musculoskeletal: no edema, pulses present Neurological: non-focal, moves all 4 limbs Psychiatric: normal affect, A&O x 3 Dx/Plan (1) Acute exacerbation of CHF (congestive heart failure) Code(s): I50.9 - HEART FAILURE, UNSPECIFIED Status: Acute Qualifiers: Heart failure type: unspecified Qualified Code(s): I50.9 - Heart failure, unspecified (2) BPH (benign prostatic hyperplasia) Code(s): N40.0 - BENIGN PROSTATIC HYPERPLASIA WITHOUT LOWER URINRY TRACT SYMP Status: Chronic Qualifiers: Lower urinary tract symptom presence: symptoms present Lower urinary tract symptom detail: unspecified Qualified Code(s): N40.1 - Benign prostatic hyperplasia with lower urinary tract symptoms (3) HTN (hypertension) Code(s): I10 - ESSENTIAL (PRIMARY) HYPERTENSION Status: Chronic Qualifiers: Hypertension type: essential hypertension Qualified Code(s): I10 - Essential (primary) hypertension (4) Parkinson disease Code(s): G20 - PARKINSON'S DISEASE Status: Chronic Comment: stable, continue carbidopa/levodopa (5) DM2 (diabetes mellitus, type 2) Status: Chronic Qualifiers: Diabetes mellitus assisted insulin use: with termite renewal inspector use Diabetes mellitus complication status: with unspecified complications Qualified Code(s) : E11.8 - Type 2 diabetes mellitus with unspecified complications; Z79.4 - senior living (current) use of insulin Comment: controlled (6) Hyponatremia Code(s): E87.1 - HYPO-OSMOLALITY AND HYPONATREMIA Status: Acute - Plan continue iv diuresis, echo pending, cardio consultation -: is on coreg, lisinopril, asp and tricor -: flomax bid to help with diuresis -: PT/cardiac rehab to mobilize as tolerated -: hyponatremia per 's adv * . Review of Systems - Medications/Allergies Allergies/Adverse Reactions: Allergies Allergy/AdvReac Type Severity Reaction Status Date / Time Penicillins Allergy Verified 02/14/18 00:03 Medications: Current Medications Acetaminophen (Tylenol) 650 mg PO Q4H PRN PRN Reason: Headache/Fever/Mild Pain (1-3) Aspirin (Aspirin Chewable) 81 mg PO DAILY [facility] Last Admin: 02/14/18 09:31 Dose: 81 mg Carbidopa/Levodopa (Sinemet 25-100) 2.5 tab PO QID [facility] Last Admin: 02/14/18 09:30 Dose: 2.5 tab Carvedilol (Coreg) 3.125 mg PO BID [facility] Last Admin: 02/14/18 10:10 Dose: 3.125 mg Dextrose/Water (Dextrose 50%) 25 gm SLOW IVP PRN PRN PRN Reason: Hypoglycemia Enoxaparin Sodium (Lovenox) 40 mg SC 0900 [facility] Last Admin: 02/14/18 09:29 Dose: 40 mg Famotidine (Pepcid) 20 mg PO BID [facility] Last Admin: 02/14/18 09:30 Dose: 20 mg Fenofibrate (Tricor) 145 mg PO DAILY [facility] Last Admin: 02/14/18 09:30 Dose: 145 mg Glucagon (Glucagon) 1 mg IM PRN PRN PRN Reason: Hypoglycemia Guaifenesin/Dextromethorphan (Robitussin Dm) 15 ml PO Q4H PRN PRN Reason: Cough Dextrose/Water (D5w) 1,000 mls @ 0 mls/hr IV .Q0M PRN PRN Reason: Hypoglycemia Insulin Glargine 10 units/ (Miscellaneous Medication) 0.1 mls @ 0 mls/hr SC HS [facility] Last Admin: 02/13/18 22:00 Dose: 0.1 mls Conivaptan HCl 20 mg/ Device 100 mls @ 200 mls/hr IVPB NOW KARLI Conivaptan HCl 20 mg/ Device 100 mls @ 4.16 mls/hr IVPB INF KARLI Insulin Human Lispro (Humalog) 0 units SC .MODERATE SLIDING SC PRN PRN Reason: Moderate Correctional Scale Lisinopril (Zestril) 2.5 mg PO DAILY [facility] Last Admin: 02/14/18 09:29 Dose: 2.5 mg Metformin HCl (Glucophage) 1,000 mg PO BID [facility] Last Admin: 02/14/18 09:30 Dose: 1,000 mg Senna/Docusate Sodium (Senokot S) 2 tab PO BID PRN PRN Reason: Constipation Tamsulosin HCl (Flomax) 0.4 mg PO BID [facility] Last Admin: 02/14/18 09:31 Dose: 0.4 mg
[2018-02-14] MEDS ORDERED: Albuterol Sulfate 2.5 mg/3 ml Neb NEB PRN (10:41)
[2018-02-14] MEDS ORDERED: Conivaptan 20 MG in Premix Bag 1 BAG IVPB SCH (10:45)
[2018-02-14 11:27] LABS: Sodium 114 mmol/L (136-145)
[2018-02-14] MEDS ORDERED: Tolvaptan 15 MG TAB PO SCH (12:15)
[2018-02-14 17:12] LABS: Sodium 115 mmol/L (136-145)
--- NOTE | 2018-02-14 19:04 | CON ---
DATE OF CONSULTATION: 02/14/2018 TYPE OF CONSULTATION: Cardiology. REASON FOR CONSULTATION: Heart failure. HISTORY OF PRESENT ILLNESS: Mr. Florez is a pleasant 78-year-old white gentleman, who comes to the hospital for feeling generalized weakness. He was found to have an elevated BNP and a very low sodium, so he was admitted and Nephrology was consulted and he was started on tolvaptan and his sodium has increased slightly. Cardiology is being consulted as he has pulmonary vascular congestion on the chest x-ray as well as an elevated BNP. Currently, Mr. Florez is mildly confused and cannot give me any significant history. PAST MEDICAL HISTORY: 1. Type 2 diabetes. 2. Prior CVA. 3. Parkinson's. 4. Hypertension.. PAST SURGICAL HISTORY: 1. Right foot surgery. 2. Skin cancer removal. OUTPATIENT MEDICATIONS: 1. Omeprazole 20 mg a day. 2. Aspirin 81 a day. 3. Metformin 1000 mg b.i.d. 4. Tamsulosin 0.4 at bedtime. 5. Lantus. 6. Fenofibrate 145 a day. 7. Carbidopa/levodopa q.i.d. ALLERGIES: PENICILLINS. SOCIAL HISTORY: No alcohol, tobacco, or drugs. Lives with . FAMILY HISTORY: Mother at 96 and father at 98 of natural causes. REVIEW OF SYSTEMS: A 12-point review of systems was done and was all negative unless stated in the history of present illness. However, this may not be too pertinent as he is pleasantly confused. PHYSICAL EXAMINATION: VITAL SIGNS: Temperature 97.1, pulse 66, respiratory rate 18, saturating 94% on room air, and blood pressure 158/84. GENERAL: Awake, alert, and oriented to person, but not oriented to place or time, in no distress. HEENT: Normocephalic and atraumatic. NECK: Supple. JVP up to about 14 cm of water. LUNGS: Have mild crackles at the bases. CARDIOVASCULAR: S1 and S2. No S3 or S4. No murmur. There is a grade 2/6 systolic murmur at right upper sternal border. ABDOMEN: Soft. EXTREMITIES: Trace edema. SKIN: Warm and dry. LABORATORY DATA: Laboratory work was reviewed. CBC with a hemoglobin of 10 down to 9 and platelet count of normal. Chemistry; initial sodium at 116 with a chloride of 87, carbon dioxide of 22, BUN of 9, creatinine of 0.6, GFR of 90, and glucose was 159. Troponin was 0.03, 0.01, and 0.01. BNP was 1872. His sodium actually went down from 116 down to 114 after 1 dose of IV Lasix. Lasix was stopped and then, he was given conivaptan, it went up from 114 to 115. TSH is 2. Chest x-ray done on admission shows evidence of a bilateral pleural effusions with findings consistent with pulmonary edema. ASSESSMENT: 1. Decompensated heart failure. Unknown if it is diastolic or systolic. Echocardiogram pending. 2. Hyponatremia, significant. Nephrology on-board. Started conivaptan. 3. Recent history of syncope seems to be orthostatic in nature. 4. History of Parkinson disease. Concern for syndrome of inappropriate antidiuretic hormone secretion for medications. PLAN: 1. Pending echo results. 2. Currently, hopefully the tolvaptan will help diurese. 3. He seems very comfortable at the time. 4. We will follow. Job ID: [id number]
--- NOTE | 2018-02-14 20:15 | PRG ---
DATE OF SERVICE: 02/14/2018 SUBJECTIVE: The patient is seen and examined with no new complaint. Noted with the following vital signs. OBJECTIVE: VITAL SIGNS: Afebrile, temperature 97.1; pulse 66; respiratory rate of 18; O2 saturation of 94% with blood pressure 158/84. HEENT: Unremarkable. CARDIOVASCULAR SYSTEM: First and second heart sounds were heard. RESPIRATORY SYSTEM: Clear to auscultation. DIGESTIVE SYSTEM: Revealed a benign abdomen. Positive bowel sounds. EXTREMITIES: No peripheral edema. SKIN: No new gross rash. LYMPHATICS: No peripheral lymphadenopathy. LABORATORY INVESTIGATIONS: Showed a sodium that dipped down to 114. Urine osmolality showed urine osmolality of 304 with sodium 91. IMPRESSION: 1. Worsening hyponatremia in the context of syndrome of inappropriate antidiuretic hormone secretion. 2. Congestive heart failure. PLAN: 1. Discontinue IV Lasix. 2. Increase protein intake in the way of animal meat. 3. Antidiuretic hormone treatment with tolvaptan. 4. Serial sodium check to avoid precipitous increase in the sodium level. 5. Further management will be dependent on the clinical course. Job ID: [id number]
[2018-02-14 21:33] LABS: Sodium 118 mmol/L (136-145)
[2018-02-14] MEDS: Carvedilol 6.25 MG TAB PO SCH (21:37)
[2018-02-14] MEDS: Insulin Glargine 10 UNITS in Pre-Filled Syringe 1 EACH SC SCH (21:38)
[2018-02-15 05:37] LABS: Anion Gap 11 mmol/L (10-20); BUN (Urea Nitrogen) 10 mg/dL (8.4-25.7); Calc. Creatinine Clearance 89 mL/min (70-130); Calcium 9.2 mg/dL (7.8-10.44); Carbon Dioxide 30 mmol/L (23-31); Chloride 90 mmol/L (98-107); Estimated GFR-MDRD Greater than 90; Glucose 74 mg/dL (83-110); Potassium 3.4 mmol/L (3.5-5.1); Sodium 128 mmol/L (136-145)
[2018-02-15] MEDS ORDERED: Tolvaptan 15 MG TAB PO SCH (09:00)
[2018-02-15] MEDS: Carvedilol 6.25 MG TAB PO SCH ×2 (09:12→20:42)
[2018-02-15] MEDS: Carbidopa/Levodopa 25-100 mg Tablet PO SCH ×4 (09:13→20:41)
[2018-02-15] MEDS: Lisinopril 2.5 MG TAB PO SCH (09:13)
[2018-02-15] MEDS: Fenofibrate Nanocrystallized 145 MG TAB PO SCH (09:13)
[2018-02-15] MEDS: Famotidine 20 MG TAB PO SCH ×2 (09:14→20:42)
[2018-02-15] MEDS: Tamsulosin HCl 0.4 MG CAP PO SCH ×2 (09:14→20:49)
[2018-02-15] MEDS: Enoxaparin Sodium 40 MG/0.4 ML SYRINGE SC SCH (09:14)
[2018-02-15] MEDS: metFORMIN 500 MG TAB PO SCH ×2 (09:14→20:42)
--- NOTE | 2018-02-15 10:40 | PDOC.PN ---
- Subjective Encounter Start Date: 02/15/18 Encounter Start Time: 10:30 Subjective: is more lethargic this am -: not fully oriented, knows he is in the hospital, follows simple verbal stim -: no sob - Objective Resuscitation Status - Order Detail: 02/13/18 13:33 Resuscitation Status Routine Resuscitation Status: DNAR: NO Resuscitation Discussed with: d/w patient at bedside, POA is his , he has living will MAR Reviewed: Yes Vital Signs & Weight: Vital Signs (12 hours) Temp Pulse Resp BP BP Pulse Ox 02/15/18 09:13 93 L 02/15/18 09:12 119/57 L 02/15/18 07:30 98.3 F 70 18 141/67 H 93 L 02/15/18 03:20 97.2 F L 60 14 153/73 H 98 Weight Admit Weight 191 lb 3.2 oz Weight 180 lb Result Diagrams: 02/14/18 05:21 02/15/18 04:23 Additional Labs: Accuchecks 02/15/18 02/14/18 02/14/18 05:27 20:15 17:03 POC Glucose 74 121 H 108 02/14/18 10:52 POC Glucose 138 H Phys Exam - Physical Examination HEENT: PERRLA, sclera anicteric Neck: no JVD, supple Respiratory: no wheezing rales++ Cardiovascular: RRR, no significant murmur Gastrointestinal: soft, non-tender, positive bowel sounds Musculoskeletal: no edema, pulses present Neurological: non-focal, moves all 4 limbs Dx/Plan (1) Acute exacerbation of CHF (congestive heart failure) Code(s): I50.9 - HEART FAILURE, UNSPECIFIED Status: Acute Qualifiers: Heart failure type: systolic Qualified Code(s): I50.23 - Acute on chronic systolic (congestive) heart failure Comment: ef of 20% (2) BPH (benign prostatic hyperplasia) Code(s): N40.0 - BENIGN PROSTATIC HYPERPLASIA WITHOUT LOWER URINRY TRACT SYMP Status: Chronic Qualifiers: Lower urinary tract symptom presence: symptoms present Lower urinary tract symptom detail: unspecified Qualified Code(s): N40.1 - Benign prostatic hyperplasia with lower urinary tract symptoms (3) HTN (hypertension) Code(s): I10 - ESSENTIAL (PRIMARY) HYPERTENSION Status: Chronic Qualifiers: Hypertension type: essential hypertension Qualified Code(s): I10 - Essential (primary) hypertension (4) Parkinson disease Code(s): G20 - PARKINSON'S DISEASE Status: Chronic Comment: stable, continue carbidopa/levodopa (5) DM2 (diabetes mellitus, type 2) Status: Chronic Qualifiers: Diabetes mellitus bed bug exterminator insulin use: with assisted use Diabetes mellitus complication status: with unspecified complications Qualified Code(s) : E11.8 - Type 2 diabetes mellitus with unspecified complications; Z79.4 - extermination supervisor (current) use of insulin Comment: controlled (6) Hyponatremia Code(s): E87.1 - HYPO-OSMOLALITY AND HYPONATREMIA Status: Acute - Plan sodium is slowly improving -: got conivaptan x1 and tolvaptan x1 dose yesterday -: ef is low with global hypokinesis -: PT to mobilize as tolerated, might require rehab/swing bed -: on asp, coreg, lisinopril, levodopa, flomax, lantus, metformin * . Review of Systems - Medications/Allergies Allergies/Adverse Reactions: Allergies Allergy/AdvReac Type Severity Reaction Status Date / Time Penicillins Allergy Verified 02/14/18 00:03 Medications: Current Medications Acetaminophen (Tylenol) 650 mg PO Q4H PRN PRN Reason: Headache/Fever/Mild Pain (1-3) Albuterol Sulfate (Ventolin) 2.5 mg NEB [id number] PRN PRN Reason: Wheezing Aspirin (Aspirin Chewable) 81 mg PO DAILY [facility] Last Admin: 02/15/18 09:14 Dose: 81 mg Carbidopa/Levodopa (Sinemet 25-100) 2.5 tab PO QID [facility] Last Admin: 02/15/18 09:13 Dose: 2.5 tab Carvedilol (Coreg) 3.125 mg PO BID [facility] Last Admin: 02/15/18 09:12 Dose: 3.125 mg Dextrose/Water (Dextrose 50%) 25 gm SLOW IVP PRN PRN PRN Reason: Hypoglycemia Enoxaparin Sodium (Lovenox) 40 mg SC 0900 [facility] Last Admin: 02/15/18 09:14 Dose: 40 mg Famotidine (Pepcid) 20 mg PO BID [facility] Last Admin: 02/15/18 09:14 Dose: 20 mg Fenofibrate (Tricor) 145 mg PO DAILY [facility] Last Admin: 02/15/18 09:13 Dose: 145 mg Glucagon (Glucagon) 1 mg IM PRN PRN PRN Reason: Hypoglycemia Guaifenesin/Dextromethorphan (Robitussin Dm) 15 ml PO Q4H PRN PRN Reason: Cough Dextrose/Water (D5w) 1,000 mls @ 0 mls/hr IV .Q0M PRN PRN Reason: Hypoglycemia Insulin Glargine 10 units/ (Miscellaneous Medication) 0.1 mls @ 0 mls/hr SC HS [facility] Last Admin: 02/14/18 21:38 Dose: Not Given Insulin Human Lispro (Humalog) 0 units SC .MODERATE SLIDING SC PRN PRN Reason: Moderate Correctional Scale Lisinopril (Zestril) 2.5 mg PO DAILY [facility] Last Admin: 02/15/18 09:13 Dose: 2.5 mg Metformin HCl (Glucophage) 1,000 mg PO BID [facility] Last Admin: 02/15/18 09:14 Dose: 500 mg Senna/Docusate Sodium (Senokot S) 2 tab PO BID PRN PRN Reason: Constipation Sodium Chloride (Flush - Normal Saline) 10 ml IVF Q12HR [facility] Last Admin: 02/15/18 09:15 Dose: 10 ml Sodium Chloride (Flush - Normal Saline) 10 ml IVF PRN PRN PRN Reason: Saline Flush Tamsulosin HCl (Flomax) 0.4 mg PO BID [facility] Last Admin: 02/15/18 09:14 Dose: 0.4 mg
[2018-02-15 11:27] LABS: Sodium 134 mmol/L (136-145)
--- NOTE | 2018-02-15 11:54 | PDOC.CTH ---
Cardiology Progress Note - Subjective New issues. SOB at baseline, no chest pain. - Objective Vital Signs Temp Pulse Resp BP BP Pulse Ox 02/15/18 11:33 97.5 F L 63 16 140/65 95 02/15/18 09:13 93 L 02/15/18 09:12 119/57 L 02/15/18 07:30 98.3 F 70 18 141/67 H 93 L 02/15/18 03:20 97.2 F L 60 14 153/73 H 98 Admit Weight 191 lb 3.2 oz Weight 180 lb - Physical Examination General/Neuro: NAD Neck: no JVD present Lungs: CTA, unlabored respirations Heart: RRR Abdomen: NT/ND Extremities: + edema B (1+) - Telemetry Telemetry Rhythm: NSR - Labs Result Diagrams: 02/14/18 05:21 02/15/18 10:46 Troponin/CKMB CK-MB (CK-2) 5.0 ng/mL (0-6.6) 02/13/18 09:16 Troponin I 0.016 ng/mL (< 0.028) 02/13/18 16:09 - Assessment/Plan 1. New onset dilated CM Ef at 20-25% 2. Hyponatremia, improved. 3. Hx of CVA 4. Parkinsons 5. HTN PLAN: - Hyponatremia significantly improved. - He wants conservative therapy for his LV dysfunction. - Will up titrate ACEI, continue BB - Stop Tolvaptan now that sodium s almost back to normal. + - Will need lifevest before discharge.
--- NOTE | 2018-02-15 19:34 | PRG ---
DATE OF SERVICE: 02/15/2018 SUBJECTIVE: The patient was seen and examined, seems to be doing much better. OBJECTIVE: VITAL SIGNS: Afebrile, temperature 97.5; pulse 63, respiratory rate of 16, and O2 saturation 99% with blood pressure of 142/69. HEENT: Unremarkable. Moist oral mucosa. NECK: Supple. No conjunctival injection or icterus. CARDIOVASCULAR SYSTEM: First and second heart sounds were heard. RESPIRATORY SYSTEM: Clear to auscultation. DIGESTIVE SYSTEM: Revealed a benign abdomen. Positive bowel sounds. EXTREMITIES: Showed improved peripheral edema. LABORATORY INVESTIGATIONS: Significant for sodium that has gone up to 128. IMPRESSION: Hyponatremia in the context of syndrome of inappropriate antidiuretic hormone, responded very well to anti-ADH. PLAN: 1. Given the rapid rise in sodium, we will hold the tolvaptan and then, monitor the sodium accordingly. 2. Further management to be dependent on the clinical course. Job ID: [id number]
[2018-02-15] MEDS: Insulin Glargine 10 UNITS in Pre-Filled Syringe 1 EACH SC SCH (20:42)
[2018-02-16 05:50] LABS: Anion Gap 13 mmol/L (10-20); BUN (Urea Nitrogen) 13 mg/dL (8.4-25.7); Calc. Creatinine Clearance 81 mL/min (70-130); Calcium 9.1 mg/dL (7.8-10.44); Carbon Dioxide 28 mmol/L (23-31); Chloride 99 mmol/L (98-107); Estimated GFR-MDRD 87; Glucose 86 mg/dL (83-110); Potassium 3.6 mmol/L (3.5-5.1); Sodium 136 mmol/L (136-145)
[2018-02-16] MEDS: Enoxaparin Sodium 40 MG/0.4 ML SYRINGE SC SCH (08:53)
[2018-02-16] MEDS: Famotidine 20 MG TAB PO SCH ×2 (08:53→21:57)
[2018-02-16] MEDS: Carbidopa/Levodopa 25-100 mg Tablet PO SCH ×4 (08:53→21:57)
[2018-02-16] MEDS: Fenofibrate Nanocrystallized 145 MG TAB PO SCH (08:54)
[2018-02-16] MEDS: metFORMIN 500 MG TAB PO SCH ×2 (08:54→18:37)
[2018-02-16] MEDS: Tamsulosin HCl 0.4 MG CAP PO SCH ×2 (08:54→21:56)
[2018-02-16] MEDS: Carvedilol 6.25 MG TAB PO SCH ×2 (08:54→21:56)
[2018-02-16] MEDS ORDERED: Lisinopril 5 MG TAB PO SCH (09:00)
--- NOTE | 2018-02-16 11:43 | PDOC.PN ---
- Subjective Encounter Start Date: 02/16/18 Encounter Start Time: 10:20 Subjective: is awake and oriented well this am -: has jerks q30sec in lower extremities -: had this in upper limbs yesterday, not seen today - Objective Resuscitation Status - Order Detail: 02/13/18 13:33 Resuscitation Status Routine Resuscitation Status: DNAR: NO Resuscitation Discussed with: d/w patient at bedside, POA is his , he has living will MAR Reviewed: Yes Vital Signs & Weight: Vital Signs (12 hours) Temp Pulse Resp BP Pulse Ox 02/16/18 08:14 164/87 H 02/16/18 08:12 96.7 F L 65 18 179/84 H 98 02/16/18 04:00 98.0 F 69 16 155/81 H 96 Weight Admit Weight 191 lb 3.2 oz Weight 175 lb 8 oz I&O: 02/15/18 02/16/18 02/17/18 06:59 06:59 06:59 Intake Total 1440 Balance 1440 Result Diagrams: 02/14/18 05:21 02/16/18 04:30 Additional Labs: Accuchecks 02/16/18 02/16/18 02/15/18 11:00 05:33 20:09 POC Glucose 117 H 90 145 H 02/15/18 17:19 POC Glucose 122 H Phys Exam - Physical Examination HEENT: PERRLA, moist MMs Neck: no JVD, supple Respiratory: no wheezing, no rales Cardiovascular: RRR, no significant murmur Gastrointestinal: soft, non-tender, positive bowel sounds Musculoskeletal: no edema, pulses present Neurological: moves all 4 limbs myoclonic jerks in LE Psychiatric: normal affect, A&O x 3 Dx/Plan (1) Acute exacerbation of CHF (congestive heart failure) Code(s): I50.9 - HEART FAILURE, UNSPECIFIED Status: Acute Qualifiers: Heart failure type: systolic Qualified Code(s): I50.23 - Acute on chronic systolic (congestive) heart failure Comment: ef of 20% (2) BPH (benign prostatic hyperplasia) Code(s): N40.0 - BENIGN PROSTATIC HYPERPLASIA WITHOUT LOWER URINRY TRACT SYMP Status: Chronic Qualifiers: Lower urinary tract symptom presence: symptoms present Lower urinary tract symptom detail: unspecified Qualified Code(s): N40.1 - Benign prostatic hyperplasia with lower urinary tract symptoms (3) HTN (hypertension) Code(s): I10 - ESSENTIAL (PRIMARY) HYPERTENSION Status: Chronic Qualifiers: Hypertension type: essential hypertension Qualified Code(s): I10 - Essential (primary) hypertension (4) Parkinson disease Code(s): G20 - PARKINSON'S DISEASE Status: Chronic Comment: stable, continue carbidopa/levodopa (5) DM2 (diabetes mellitus, type 2) Status: Chronic Qualifiers: Diabetes mellitus group home insulin use: with group home use Diabetes mellitus complication status: with unspecified complications Qualified Code(s) : E11.8 - Type 2 diabetes mellitus with unspecified complications; Z79.4 - supervisor intermediates (current) use of insulin Comment: controlled (6) Hyponatremia Code(s): E87.1 - HYPO-OSMOLALITY AND HYPONATREMIA Status: Resolved (7) Myoclonic jerking Code(s): G25.3 - MYOCLONUS Status: Acute - Plan sodium is corrected, pt is more oriented -: ambulated 54ft with rw yesterday -: has myoclonic jerks in LE, likely due to electrolyte abn which is getting c -: -orrected, d/w daughter who is worried at bedside, will get neuro consult -: on asp, coreg, lisinopril, tricor, sinemet, metformin and lantus * . Pt does not wish to have AICD placed Awaiting life vest placement. Likely will need swing bed for few days before going home. Review of Systems - Medications/Allergies Allergies/Adverse Reactions: Allergies Allergy/AdvReac Type Severity Reaction Status Date / Time Penicillins Allergy Verified 02/14/18 00:03 Medications: Current Medications Acetaminophen (Tylenol) 650 mg PO Q4H PRN PRN Reason: Headache/Fever/Mild Pain (1-3) Albuterol Sulfate (Ventolin) 2.5 mg NEB [id number] PRN PRN Reason: Wheezing Aspirin (Aspirin Chewable) 81 mg PO DAILY [facility] Last Admin: 02/16/18 08:54 Dose: 81 mg Carbidopa/Levodopa (Sinemet 25-100) 2.5 tab PO QID [facility] Last Admin: 02/16/18 08:53 Dose: 2.5 tab Carvedilol (Coreg) 3.125 mg PO BID [facility] Last Admin: 02/16/18 08:54 Dose: 3.125 mg Dextrose/Water (Dextrose 50%) 25 gm SLOW IVP PRN PRN PRN Reason: Hypoglycemia Enoxaparin Sodium (Lovenox) 40 mg SC 0900 [facility] Last Admin: 02/16/18 08:53 Dose: 40 mg Famotidine (Pepcid) 20 mg PO BID [facility] Last Admin: 02/16/18 08:53 Dose: 20 mg Fenofibrate (Tricor) 145 mg PO DAILY [facility] Last Admin: 02/16/18 08:54 Dose: 145 mg Glucagon (Glucagon) 1 mg IM PRN PRN PRN Reason: Hypoglycemia Guaifenesin/Dextromethorphan (Robitussin Dm) 15 ml PO Q4H PRN PRN Reason: Cough Dextrose/Water (D5w) 1,000 mls @ 0 mls/hr IV .Q0M PRN PRN Reason: Hypoglycemia Insulin Glargine 10 units/ (Miscellaneous Medication) 0.1 mls @ 0 mls/hr SC HS [facility] Last Admin: 02/15/18 20:42 Dose: 0.1 mls Insulin Human Lispro (Humalog) 0 units SC .MODERATE SLIDING SC PRN PRN Reason: Moderate Correctional Scale Lisinopril (Zestril) 5 mg PO DAILY [facility] Last Admin: 02/16/18 08:54 Dose: 5 mg Metformin HCl (Glucophage) 1,000 mg PO BID [facility] Last Admin: 02/16/18 08:54 Dose: 1,000 mg Senna/Docusate Sodium (Senokot S) 2 tab PO BID PRN PRN Reason: Constipation Sodium Chloride (Flush - Normal Saline) 10 ml IVF Q12HR [facility] Last Admin: 02/15/18 20:42 Dose: 10 ml Sodium Chloride (Flush - Normal Saline) 10 ml IVF PRN PRN PRN Reason: Saline Flush Tamsulosin HCl (Flomax) 0.4 mg PO BID [facility] Last Admin: 02/16/18 08:54 Dose: 0.4 mg
--- NOTE | 2018-02-16 15:03 | PDOC.CTH ---
Cardiology Progress Note - Subjective No new issues. Close to baseline. Pleasantly demented. - Objective Vital Signs Temp Pulse Pulse Pulse Resp BP BP 02/16/18 11:51 97.7 F 66 18 02/16/18 10:10 70 77 174/86 H 173/83 H 02/16/18 08:14 02/16/18 08:12 96.7 F L 65 18 02/16/18 04:00 98.0 F 69 16 BP Pulse Ox 02/16/18 11:51 150/73 H 97 02/16/18 10:10 02/16/18 08:14 164/87 H 02/16/18 08:12 179/84 H 98 02/16/18 04:00 155/81 H 96 Admit Weight 191 lb 3.2 oz Weight 175 lb 8 oz 02/15/18 02/16/18 02/17/18 06:59 06:59 06:59 Intake Total 1440 Balance 1440 - Physical Examination General/Neuro: NAD, other: (AAO x person only. ) Neck: no JVD present Lungs: unlabored respirations Heart: RRR Abdomen: NT/ND Extremities: other: (no edema) - Telemetry Telemetry Rhythm: NSR - Labs Result Diagrams: 02/14/18 05:21 02/16/18 04:30 Troponin/CKMB CK-MB (CK-2) 5.0 ng/mL (0-6.6) 02/13/18 09:16 Troponin I 0.016 ng/mL (< 0.028) 02/13/18 16:09 - Assessment/Plan 1. New onset dilated CM EF at 20-25% 2. Hyponatremia, improved. 3. Hx of CVA 4. Parkinsons 5. HTN PLAN: - Hyponatremia significantly improved. - He wants conservative therapy for his LV dysfunction. - Will up titrate ACEI today. - Will need lifevest before discharge. - He would be interested in an AICD in the future if needed but not on caths or interventions. - Continue medical therapy.
[2018-02-16] MEDS ORDERED: Lisinopril 10 MG TAB PO SCH (15:45)
--- NOTE | 2018-02-16 16:08 | MRI ---
BRAIN MRI WITHOUT CONTRAST: Date: 02/16/18 HISTORY: Myoclonic jerks in lower extremities, assess for acute infarction. TECHNIQUE: Multiplanar, multisequence MR imaging of the brain obtained without contrast. FINDINGS: The diffusion-weighted imaging demonstrates no evidence for acute infarction. The axial gradient echo imaging demonstrates no evidence for intracranial hemorrhage. Arterial flow-voids at axial level of skull base appear grossly unremarkable on the T2-weighted imagi ng. There is mild mucosal thickening of the maxillary sinus anteriorly on the left. Regional bone marrow signal intensity appears grossly unremarkable. There is degenerative change at t he atlantoaxial interspace. There is mild diffuse cerebral volume loss. IMPRESSION: No evidence for acute infarction or intracranial hemorrhage. POS: RYLEY
--- NOTE | 2018-02-16 19:21 | PRG ---
DATE OF SERVICE: 02/16/2018 SUBJECTIVE: The patient noted with the following vital signs. OBJECTIVE: VITAL SIGNS: Afebrile, temperature 97.9, pulse 81, respiratory rate of 16, O2 saturation 97%, and blood pressure 150/73. HEENT: Unremarkable. CARDIOVASCULAR SYSTEM: First and second heart sounds were heard. RESPIRATORY: Clear to auscultation. DIGESTIVE SYSTEM: Revealed a benign abdomen. Positive bowel sounds. EXTREMITIES: No peripheral edema. SKIN: No new gross rash. LYMPHATICS: No peripheral lymphadenopathy. LABORATORY INVESTIGATION: Showed a sodium of 136. 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 PLAN: 1. The patient seems to be maintaining sodium level off anti-ADH medication. 2. Continue with current nutrition. 3. Further management will be dependent on the clinical course. Job ID: [id number]
[2018-02-16] MEDS: Insulin Glargine 10 UNITS in Pre-Filled Syringe 1 EACH SC SCH (21:55)
[2018-02-17 05:49] LABS: Anion Gap 10 mmol/L (10-20); BUN (Urea Nitrogen) 19 mg/dL (8.4-25.7); Calc. Creatinine Clearance 90 mL/min (70-130); Calcium 8.5 mg/dL (7.8-10.44); Carbon Dioxide 26 mmol/L (23-31); Chloride 100 mmol/L (98-107); Estimated GFR-MDRD Greater than 90; Glucose 111 mg/dL (83-110); Potassium 3.6 mmol/L (3.5-5.1); Sodium 132 mmol/L (136-145)
[2018-02-17] MEDS: Enoxaparin Sodium 40 MG/0.4 ML SYRINGE SC SCH (08:46)
[2018-02-17] MEDS: metFORMIN 500 MG TAB PO SCH ×2 (08:47→16:56)
[2018-02-17] MEDS: Famotidine 20 MG TAB PO SCH ×2 (08:47→20:58)
[2018-02-17] MEDS: Tamsulosin HCl 0.4 MG CAP PO SCH ×2 (08:47→20:58)
[2018-02-17] MEDS: Carvedilol 6.25 MG TAB PO SCH ×2 (08:47→16:56)
[2018-02-17] MEDS: Fenofibrate Nanocrystallized 145 MG TAB PO SCH (08:47)
[2018-02-17] MEDS: Lisinopril 10 MG TAB PO SCH (08:47)
[2018-02-17] MEDS: Carbidopa/Levodopa 25-100 mg Tablet PO SCH ×4 (08:48→20:58)
[2018-02-17] MEDS ORDERED: Lisinopril 5 MG TAB PO SCH (09:00)
--- NOTE | 2018-02-17 13:43 | PDOC.PN ---
- Subjective Encounter Start Date: 02/17/18 Encounter Start Time: 09:45 Subjective: is awake and oriented well, no sob -: family at bedside -: no shaking or jerking of LE - Objective Resuscitation Status - Order Detail: 02/13/18 13:33 Resuscitation Status Routine Resuscitation Status: DNAR: NO Resuscitation Discussed with: d/w patient at bedside, POA is his , he has living will MAR Reviewed: Yes Vital Signs & Weight: Vital Signs (12 hours) Temp Pulse Resp BP Pulse Ox 02/17/18 11:22 97.7 F 66 16 134/60 98 02/17/18 07:23 97.1 F L 60 18 154/73 H 98 02/17/18 03:05 96.5 F L 64 19 144/74 H 94 L Weight Admit Weight 191 lb 3.2 oz Weight 173 lb 3.2 oz I&O: 02/16/18 02/17/18 02/18/18 06:59 06:59 06:59 Intake Total 1440 100 Balance 1440 100 Result Diagrams: 02/14/18 05:21 02/17/18 04:47 Additional Labs: Accuchecks 02/17/18 02/17/18 02/16/18 11:07 05:28 20:47 POC Glucose 132 H 112 H 149 H 02/16/18 16:43 POC Glucose 117 H Phys Exam - Physical Examination HEENT: PERRLA, moist MMs Neck: no JVD, supple Respiratory: no wheezing, no rales Cardiovascular: RRR, no significant murmur Gastrointestinal: soft, non-tender, positive bowel sounds Musculoskeletal: no edema, pulses present Neurological: non-focal, moves all 4 limbs Psychiatric: normal affect, A&O x 3 Dx/Plan (1) Acute exacerbation of CHF (congestive heart failure) Code(s): I50.9 - HEART FAILURE, UNSPECIFIED Status: Acute Qualifiers: Heart failure type: systolic Qualified Code(s): I50.23 - Acute on chronic systolic (congestive) heart failure Comment: ef of 20% (2) BPH (benign prostatic hyperplasia) Code(s): N40.0 - BENIGN PROSTATIC HYPERPLASIA WITHOUT LOWER URINRY TRACT SYMP Status: Chronic Qualifiers: Lower urinary tract symptom presence: symptoms present Lower urinary tract symptom detail: unspecified Qualified Code(s): N40.1 - Benign prostatic hyperplasia with lower urinary tract symptoms (3) HTN (hypertension) Code(s): I10 - ESSENTIAL (PRIMARY) HYPERTENSION Status: Chronic Qualifiers: Hypertension type: essential hypertension Qualified Code(s): I10 - Essential (primary) hypertension (4) Parkinson disease Code(s): G20 - PARKINSON'S DISEASE Status: Chronic Comment: stable, continue carbidopa/levodopa (5) DM2 (diabetes mellitus, type 2) Status: Chronic Qualifiers: Diabetes mellitus oil heaterman insulin use: with oil heaterman use Diabetes mellitus complication status: with unspecified complications Qualified Code(s) : E11.8 - Type 2 diabetes mellitus with unspecified complications; Z79.4 - jail (current) use of insulin Comment: controlled (6) Hyponatremia Code(s): E87.1 - HYPO-OSMOLALITY AND HYPONATREMIA Status: Resolved (7) Myoclonic jerking Code(s): G25.3 - MYOCLONUS Status: Resolved Comment: sec to electrolyte abn resolved - Plan hemo/neurostable -: MRI no ac changes -: on asp, coreg, lisinopril, tricor -: continue sinemet -: awaiting placement and life vest, may tx to med if life vest is on him * . Review of Systems - Medications/Allergies Allergies/Adverse Reactions: Allergies Allergy/AdvReac Type Severity Reaction Status Date / Time Penicillins Allergy Verified 02/14/18 00:03 Medications: Current Medications Acetaminophen (Tylenol) 650 mg PO Q4H PRN PRN Reason: Headache/Fever/Mild Pain (1-3) Albuterol Sulfate (Ventolin) 2.5 mg NEB [id number] PRN PRN Reason: Wheezing Aspirin (Aspirin Chewable) 81 mg PO DAILY [facility] Last Admin: 02/17/18 08:47 Dose: 81 mg Carbidopa/Levodopa (Sinemet 25-100) 2.5 tab PO QID [facility] Last Admin: 02/17/18 12:39 Dose: 2.5 tab Carvedilol (Coreg) 3.125 mg PO BID [facility] Last Admin: 02/17/18 08:47 Dose: 3.125 mg Dextrose/Water (Dextrose 50%) 25 gm SLOW IVP PRN PRN PRN Reason: Hypoglycemia Enoxaparin Sodium (Lovenox) 40 mg SC 0900 [facility] Last Admin: 02/17/18 08:46 Dose: 40 mg Famotidine (Pepcid) 20 mg PO BID [facility] Last Admin: 02/17/18 08:47 Dose: 20 mg Fenofibrate (Tricor) 145 mg PO DAILY [facility] Last Admin: 02/17/18 08:47 Dose: 145 mg Glucagon (Glucagon) 1 mg IM PRN PRN PRN Reason: Hypoglycemia Guaifenesin/Dextromethorphan (Robitussin Dm) 15 ml PO Q4H PRN PRN Reason: Cough Dextrose/Water (D5w) 1,000 mls @ 0 mls/hr IV .Q0M PRN PRN Reason: Hypoglycemia Insulin Glargine 10 units/ (Miscellaneous Medication) 0.1 mls @ 0 mls/hr SC HS [facility] Last Admin: 02/16/18 21:55 Dose: 0.1 mls Insulin Human Lispro (Humalog) 0 units SC .MODERATE SLIDING SC PRN PRN Reason: Moderate Correctional Scale Lisinopril (Zestril) 10 mg PO DAILY [facility] Last Admin: 02/17/18 08:47 Dose: 10 mg Metformin HCl (Glucophage) 500 mg PO BID[facility] Last Admin: 02/17/18 08:47 Dose: 500 mg Senna/Docusate Sodium (Senokot S) 2 tab PO BID PRN PRN Reason: Constipation Sodium Chloride (Flush - Normal Saline) 10 ml IVF Q12HR [facility] Last Admin: 02/17/18 08:48 Dose: 10 ml Sodium Chloride (Flush - Normal Saline) 10 ml IVF PRN PRN PRN Reason: Saline Flush Last Admin: 02/16/18 18:38 Dose: 10 ml Tamsulosin HCl (Flomax) 0.4 mg PO BID [facility] Last Admin: 02/17/18 08:47 Dose: 0.4 mg
[2018-02-17] MEDS: Insulin Glargine 10 UNITS in Pre-Filled Syringe 1 EACH SC SCH (20:57)
--- NOTE | 2018-02-17 23:00 | EKG ---
Test Reason : KR7 Blood Pressure : / mmHG Vent. Rate : 085 BPM Atrial Rate : 085 BPM P-R Int : 168 ms QRS Dur : 112 ms QT Int : 378 ms P-R-T Axes : 061 026 -58 degrees QTc Int : 449 ms Normal sinus rhythm Inferior infarct , age undetermined Abnormal ECG Confirmed by JOSE ENRIQUE DUARTE, ANNE (12), technical writer and editor KAYLEE SHANKS ([id number]) on 02/17/2018 10:59:13 PM Referred By: Confirmed By:ANNE QUISPE MD
--- NOTE | 2018-02-18 02:40 | PRG ---
DATE OF SERVICE: 02/18/2018 SUBJECTIVE: The patient is seen and examined with no new complaint. OBJECTIVE: VITAL SIGNS: Noted with the following vital signs; afebrile with temperature of 97.5, pulse 51, respiratory rate of 18, and O2 saturation 98% with blood pressure of 119/65. HEENT: Unremarkable. CARDIOVASCULAR SYSTEM: First and second heart sounds were heard. RESPIRATORY: Clear to auscultation. DIGESTIVE SYSTEM: Revealed a benign abdomen. EXTREMITIES: No peripheral edema. SKIN: No new gross rash. LYMPHATICS: No peripheral lymphadenopathy. IMPRESSION: 1. 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 2. Congestive heart failure with hypovolemia. PLAN: 1. Monitor the sodium closely especially now that the sodium seems to be drifting down once again. 2. Further management will be dependent on the clinical course. Job ID: [id number]
[2018-02-18 06:02] LABS: Anion Gap 10 mmol/L (10-20); BUN (Urea Nitrogen) 18 mg/dL (8.4-25.7); Calc. Creatinine Clearance 86 mL/min (70-130); Calcium 8.8 mg/dL (7.8-10.44); Carbon Dioxide 26 mmol/L (23-31); Chloride 99 mmol/L (98-107); Estimated GFR-MDRD Greater than 90; Glucose 92 mg/dL (83-110); Potassium 3.7 mmol/L (3.5-5.1); Sodium 131 mmol/L (136-145)
[2018-02-18] MEDS: Carvedilol 6.25 MG TAB PO SCH ×2 (08:51→16:45)
[2018-02-18] MEDS: Tamsulosin HCl 0.4 MG CAP PO SCH ×2 (08:52→21:16)
[2018-02-18] MEDS: metFORMIN 500 MG TAB PO SCH ×2 (08:52→16:45)
[2018-02-18] MEDS: Fenofibrate Nanocrystallized 145 MG TAB PO SCH (08:52)
[2018-02-18] MEDS: Carbidopa/Levodopa 25-100 mg Tablet PO SCH ×4 (08:52→21:16)
[2018-02-18] MEDS: Famotidine 20 MG TAB PO SCH ×2 (08:53→21:17)
[2018-02-18] MEDS: Enoxaparin Sodium 40 MG/0.4 ML SYRINGE SC SCH (08:53)
[2018-02-18] MEDS: Lisinopril 10 MG TAB PO SCH (08:53)
--- NOTE | 2018-02-18 10:55 | PDOC.PN ---
- Subjective Encounter Start Date: 02/18/18 Encounter Start Time: 10:15 Subjective: no sob or chest pain -: feels good, responds well to verbal questions - Objective Resuscitation Status - Order Detail: 02/13/18 13:33 Resuscitation Status Routine Resuscitation Status: DNAR: NO Resuscitation Discussed with: d/w patient at bedside, POA is his , he has living will MAR Reviewed: Yes Vital Signs & Weight: Vital Signs (12 hours) Temp Pulse Resp BP BP Pulse Ox 02/18/18 08:53 138/60 02/18/18 08:51 138/60 02/18/18 08:47 97.4 F L 75 16 138/60 98 02/18/18 03:02 97.9 F 64 18 142/68 H 98 Weight Admit Weight 191 lb 3.2 oz Weight 172 lb I&O: 02/17/18 02/18/18 02/19/18 06:59 06:59 06:59 Intake Total 100 1210 Output Total 100 Balance 100 1110 Result Diagrams: 02/14/18 05:21 02/18/18 04:34 Additional Labs: Accuchecks 02/18/18 02/17/18 02/17/18 05:17 20:50 16:58 POC Glucose 112 H 164 H 130 H 02/17/18 11:07 POC Glucose 132 H Phys Exam - Physical Examination HEENT: PERRLA, moist MMs Neck: no JVD, supple Respiratory: no wheezing, no rales Cardiovascular: RRR, no significant murmur Gastrointestinal: soft, non-tender, positive bowel sounds Musculoskeletal: no edema, pulses present Neurological: non-focal, moves all 4 limbs Dx/Plan (1) Acute exacerbation of CHF (congestive heart failure) Code(s): I50.9 - HEART FAILURE, UNSPECIFIED Status: Acute Qualifiers: Heart failure type: systolic Qualified Code(s): I50.23 - Acute on chronic systolic (congestive) heart failure Comment: ef of 20% (2) BPH (benign prostatic hyperplasia) Code(s): N40.0 - BENIGN PROSTATIC HYPERPLASIA WITHOUT LOWER URINRY TRACT SYMP Status: Chronic Qualifiers: Lower urinary tract symptom presence: symptoms present Lower urinary tract symptom detail: unspecified Qualified Code(s): N40.1 - Benign prostatic hyperplasia with lower urinary tract symptoms (3) HTN (hypertension) Code(s): I10 - ESSENTIAL (PRIMARY) HYPERTENSION Status: Chronic Qualifiers: Hypertension type: essential hypertension Qualified Code(s): I10 - Essential (primary) hypertension (4) Parkinson disease Code(s): G20 - PARKINSON'S DISEASE Status: Chronic Comment: stable, continue carbidopa/levodopa (5) DM2 (diabetes mellitus, type 2) Status: Chronic Qualifiers: Diabetes mellitus computer terminal operator insulin use: with detention use Diabetes mellitus complication status: with unspecified complications Qualified Code(s) : E11.8 - Type 2 diabetes mellitus with unspecified complications; Z79.4 - computer terminal operator (current) use of insulin Comment: controlled (6) Hyponatremia Code(s): E87.1 - HYPO-OSMOLALITY AND HYPONATREMIA Status: Resolved (7) Myoclonic jerking Code(s): G25.3 - MYOCLONUS Status: Resolved Comment: sec to electrolyte abn resolved - Plan awaiting life vest placement -: dc plan to [facility] if accepted in am -: is on coreg, asp, coreg, lisinopril -: continue sinemet, flomax -: to amb as tolerated with PT * . Review of Systems - Medications/Allergies Allergies/Adverse Reactions: Allergies Allergy/AdvReac Type Severity Reaction Status Date / Time Penicillins Allergy Verified 02/14/18 00:03 Medications: Current Medications Acetaminophen (Tylenol) 650 mg PO Q4H PRN PRN Reason: Headache/Fever/Mild Pain (1-3) Albuterol Sulfate (Ventolin) 2.5 mg NEB [id number] PRN PRN Reason: Wheezing Aspirin (Aspirin Chewable) 81 mg PO DAILY [facility] Last Admin: 02/18/18 08:53 Dose: 81 mg Carbidopa/Levodopa (Sinemet 25-100) 2.5 tab PO QID [facility] Last Admin: 02/18/18 08:52 Dose: 2.5 tab Carvedilol (Coreg) 6.25 mg PO BID-[facility] Last Admin: 02/18/18 08:51 Dose: 6.25 mg Dextrose/Water (Dextrose 50%) 25 gm SLOW IVP PRN PRN PRN Reason: Hypoglycemia Enoxaparin Sodium (Lovenox) 40 mg SC 0900 [facility] Last Admin: 02/18/18 08:53 Dose: 40 mg Famotidine (Pepcid) 20 mg PO BID [facility] Last Admin: 02/18/18 08:53 Dose: 20 mg Fenofibrate (Tricor) 145 mg PO DAILY [facility] Last Admin: 02/18/18 08:52 Dose: 145 mg Glucagon (Glucagon) 1 mg IM PRN PRN PRN Reason: Hypoglycemia Guaifenesin/Dextromethorphan (Robitussin Dm) 15 ml PO Q4H PRN PRN Reason: Cough Dextrose/Water (D5w) 1,000 mls @ 0 mls/hr IV .Q0M PRN PRN Reason: Hypoglycemia Insulin Glargine 10 units/ (Miscellaneous Medication) 0.1 mls @ 0 mls/hr SC HS [facility] Last Admin: 02/17/18 20:57 Dose: 0.1 mls Insulin Human Lispro (Humalog) 0 units SC .MODERATE SLIDING SC PRN PRN Reason: Moderate Correctional Scale Lisinopril (Zestril) 10 mg PO DAILY [facility] Last Admin: 02/18/18 08:53 Dose: 10 mg Metformin HCl (Glucophage) 500 mg PO BID[facility] Last Admin: 02/18/18 08:52 Dose: 500 mg Senna/Docusate Sodium (Senokot S) 2 tab PO BID PRN PRN Reason: Constipation Sodium Chloride (Flush - Normal Saline) 10 ml IVF Q12HR [facility] Last Admin: 02/18/18 08:53 Dose: 10 ml Sodium Chloride (Flush - Normal Saline) 10 ml IVF PRN PRN PRN Reason: Saline Flush Last Admin: 02/16/18 18:38 Dose: 10 ml Tamsulosin HCl (Flomax) 0.4 mg PO BID [facility] Last Admin: 02/18/18 08:52 Dose: 0.4 mg
[2018-02-18] MEDS: Senokot S 8.6-50 MG TAB PO PRN (16:44)
[2018-02-18] MEDS: Insulin Glargine 10 UNITS in Pre-Filled Syringe 1 EACH SC SCH (21:17)
--- NOTE | 2018-02-18 22:34 | PRG ---
DATE OF SERVICE: 02/18/2018 SUBJECTIVE: The patient noted with the following vital signs. OBJECTIVE: VITAL SIGNS: Afebrile with temperature 97.4, pulse 75, respiratory rate 16, blood pressure 138/60, O2 saturation of 98%. HEENT EXAMINATION: Unremarkable. CARDIOVASCULAR SYSTEM: First and second heart sounds were heard. RESPIRATORY SYSTEM: Clear to auscultation. DIGESTIVE SYSTEM: Revealed a benign abdomen. EXTREMITIES: No peripheral edema. SKIN EXAMINATION: No new gross rash. LYMPHATICS: No peripheral lymphadenopathy. LABORATORY INVESTIGATION: Significant for sodium that has drifted down to 131. 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 PLAN: 1. We will monitor this closely and if the sodium continues to drift down, we will likely administer another anti-ADH medication. 2. Continue with fluid restriction. 3. Further management to be dependent on the clinical course. Job ID: [id number]
[2018-02-19 06:06] LABS: Anion Gap 9 mmol/L (10-20); BUN (Urea Nitrogen) 18 mg/dL (8.4-25.7); Calc. Creatinine Clearance 78 mL/min (70-130); Calcium 8.9 mg/dL (7.8-10.44); Carbon Dioxide 25 mmol/L (23-31); Chloride 103 mmol/L (98-107); Estimated GFR-MDRD 86; Glucose 64 mg/dL (83-110); Potassium 3.8 mmol/L (3.5-5.1); Sodium 133 mmol/L (136-145)
--- NOTE | 2018-02-19 09:06 | PQF ---
BELÉN SCOTT VINAYA KUMAR MD [id number] [facility] [id number] CLINICAL DOCUMENTATION IMPROVEMENT CLARIFICATION FORM: ICD-10 Updated PLEASE DO AN ADDENDUM TO THE PROGRESS NOTE WITH ANY DOCUMENTATION UPDATES OR ADDITIONS AND CARRY THROUGH TO DC SUMMARY. THANK YOU. DATE: 02/19 ATTN: DR. Golden DEGROOT Please exercise your independent, professional judgment in responding to the clarification form. Clinical indicators are provided on the bottom of this form for your review. Please check appropriate box(s): ___x____ I (concur) with the Wound Care findings as stated below. [ ] Pressure Ulcer: (Stage I: Erythema; Stage II: Partial thickness; Stage III: Full thickness; Stage IV: Necrosis to muscle/bone) [ ] Location: POA: [ ] Yes [ ] No [ ] Unable to determine Stage (I to IV): (Left Right Bilateral N/A ) [ ] No pressure ulcer diagnosis [ ] Other diagnosis [ ] Unable to determine In addition, please specify: Present on Admission (POA): [ ] Yes [ ] No [ ] Unable to determine For continuity of documentation, please document condition throughout progress notes and discharge summary. Thank You. CLINICAL INDICATORS - SIGNS / SYMPTOMS / LABS WOUND CARE DOCUMENTATION 02/15: HEALING STAGE II PRESSURE ULCER R BUTTOCK; DRYING BLISTER, NO OPEN AREAS NOTED. RISK FACTORS: PARKINSON'S DEMENTIA DECONDITIONED W/DECREASED STRENGTH, FUNCTIONAL MOBILITY & GAIT TREATMENT: TURN Q2 HRS WAFFLE MATTRESS THANK YOU! María Elena (This form is maintained as a part of the permanent medical record) 2015 [employer]. All Rights Reserved María Elena Madrigal RN, BSN [email or web address] Office: [phone] [place]
[2018-02-19] MEDS: Carvedilol 6.25 MG TAB PO SCH ×2 (09:48→16:26)
[2018-02-19] MEDS: metFORMIN 500 MG TAB PO SCH ×2 (09:48→16:26)
[2018-02-19] MEDS: Carbidopa/Levodopa 25-100 mg Tablet PO SCH ×4 (09:48→20:29)
[2018-02-19] MEDS: Enoxaparin Sodium 40 MG/0.4 ML SYRINGE SC SCH (09:50)
[2018-02-19] MEDS: Lisinopril 10 MG TAB PO SCH (09:51)
[2018-02-19] MEDS: Famotidine 20 MG TAB PO SCH ×2 (09:51→20:30)
[2018-02-19] MEDS: Fenofibrate Nanocrystallized 145 MG TAB PO SCH (09:51)
[2018-02-19] MEDS: Tamsulosin HCl 0.4 MG CAP PO SCH ×2 (09:51→20:29)
[2018-02-19] MEDS: Senokot S 8.6-50 MG TAB PO PRN (12:02)
--- NOTE | 2018-02-19 14:00 | PDOC.PN ---
- Subjective Encounter Start Date: 02/19/18 Encounter Start Time: 08:00 Subjective: no sob, is awake and oriented -: at bedside - Objective Resuscitation Status - Order Detail: 02/13/18 13:33 Resuscitation Status Routine Resuscitation Status: DNAR: NO Resuscitation Discussed with: d/w patient at bedside, POA is his , he has living will MAR Reviewed: Yes Vital Signs & Weight: Vital Signs (12 hours) Temp Pulse Resp BP Pulse Ox 02/19/18 11:58 97.5 F L 63 16 151/73 H 97 02/19/18 07:55 97.5 F L 64 18 155/72 H 98 02/19/18 04:25 97.8 F 64 16 156/83 H 99 Weight Admit Weight 191 lb 3.2 oz Weight 172 lb 1.6 oz I&O: 02/18/18 02/19/18 02/20/18 06:59 06:59 06:59 Intake Total 1210 860 Output Total 100 Balance 1110 860 Result Diagrams: 02/14/18 05:21 02/19/18 04:25 Additional Labs: Accuchecks 02/19/18 02/19/18 02/18/18 11:30 05:48 20:37 POC Glucose 105 77 113 H 02/18/18 17:16 POC Glucose 102 Phys Exam - Physical Examination HEENT: PERRLA, moist MMs Neck: no JVD, supple Respiratory: no wheezing, no rales Cardiovascular: RRR, no significant murmur Gastrointestinal: soft, non-tender, positive bowel sounds Musculoskeletal: no edema, pulses present Neurological: non-focal, moves all 4 limbs Psychiatric: normal affect, A&O x 3 Dx/Plan (1) Acute exacerbation of CHF (congestive heart failure) Code(s): I50.9 - HEART FAILURE, UNSPECIFIED Status: Acute Qualifiers: Heart failure type: systolic Qualified Code(s): I50.23 - Acute on chronic systolic (congestive) heart failure Comment: ef of 20% (2) BPH (benign prostatic hyperplasia) Code(s): N40.0 - BENIGN PROSTATIC HYPERPLASIA WITHOUT LOWER URINRY TRACT SYMP Status: Chronic Qualifiers: Lower urinary tract symptom presence: symptoms present Lower urinary tract symptom detail: unspecified Qualified Code(s): N40.1 - Benign prostatic hyperplasia with lower urinary tract symptoms (3) HTN (hypertension) Code(s): I10 - ESSENTIAL (PRIMARY) HYPERTENSION Status: Chronic Qualifiers: Hypertension type: essential hypertension Qualified Code(s): I10 - Essential (primary) hypertension (4) Parkinson disease Code(s): G20 - PARKINSON'S DISEASE Status: Chronic Comment: stable, continue carbidopa/levodopa (5) DM2 (diabetes mellitus, type 2) Status: Chronic Qualifiers: Diabetes mellitus privacy officer insulin use: with privacy officer use Diabetes mellitus complication status: with unspecified complications Qualified Code(s) : E11.8 - Type 2 diabetes mellitus with unspecified complications; Z79.4 - jail (current) use of insulin Comment: controlled (6) Hyponatremia Code(s): E87.1 - HYPO-OSMOLALITY AND HYPONATREMIA Status: Resolved (7) Myoclonic jerking Code(s): G25.3 - MYOCLONUS Status: Resolved Comment: sec to electrolyte abn resolved - Plan has been accepted to [facility] -: awaiting lifevest placement before dc -: is on asp, coreg, lisinopril -: sinemet, flomax -: may dc anytime once lifevest is placed * . Review of Systems - Medications/Allergies Allergies/Adverse Reactions: Allergies Allergy/AdvReac Type Severity Reaction Status Date / Time Penicillins Allergy Verified 02/14/18 00:03 Medications: Current Medications Acetaminophen (Tylenol) 650 mg PO Q4H PRN PRN Reason: Headache/Fever/Mild Pain (1-3) Albuterol Sulfate (Ventolin) 2.5 mg NEB [id number] PRN PRN Reason: Wheezing Aspirin (Aspirin Chewable) 81 mg PO DAILY [facility] Last Admin: 02/19/18 09:48 Dose: 81 mg Carbidopa/Levodopa (Sinemet 25-100) 2.5 tab PO QID [facility] Last Admin: 02/19/18 12:03 Dose: 2.5 tab Carvedilol (Coreg) 6.25 mg PO BID-WM [facility] Last Admin: 02/19/18 09:48 Dose: 6.25 mg Dextrose/Water (Dextrose 50%) 25 gm SLOW IVP PRN PRN PRN Reason: Hypoglycemia Enoxaparin Sodium (Lovenox) 40 mg SC 0900 [facility] Last Admin: 02/19/18 09:50 Dose: 40 mg Famotidine (Pepcid) 20 mg PO BID [facility] Last Admin: 02/19/18 09:51 Dose: 20 mg Fenofibrate (Tricor) 145 mg PO DAILY [facility] Last Admin: 02/19/18 09:51 Dose: 145 mg Glucagon (Glucagon) 1 mg IM PRN PRN PRN Reason: Hypoglycemia Guaifenesin/Dextromethorphan (Robitussin Dm) 15 ml PO Q4H PRN PRN Reason: Cough Dextrose/Water (D5w) 1,000 mls @ 0 mls/hr IV .Q0M PRN PRN Reason: Hypoglycemia Insulin Glargine 10 units/ (Miscellaneous Medication) 0.1 mls @ 0 mls/hr SC HS [facility] Last Admin: 02/18/18 21:17 Dose: 0.1 mls Insulin Human Lispro (Humalog) 0 units SC .MODERATE SLIDING SC PRN PRN Reason: Moderate Correctional Scale Lisinopril (Zestril) 10 mg PO DAILY [facility] Last Admin: 02/19/18 09:51 Dose: 10 mg Metformin HCl (Glucophage) 500 mg PO BID-[facility] Last Admin: 02/19/18 09:48 Dose: 500 mg Senna/Docusate Sodium (Senokot S) 2 tab PO BID PRN PRN Reason: Constipation Last Admin: 02/19/18 12:02 Dose: 2 tab Sodium Chloride (Flush - Normal Saline) 10 ml IVF Q12HR [facility] Last Admin: 02/19/18 09:52 Dose: 10 ml Sodium Chloride (Flush - Normal Saline) 10 ml IVF PRN PRN PRN Reason: Saline Flush Last Admin: 02/16/18 18:38 Dose: 10 ml Tamsulosin HCl (Flomax) 0.4 mg PO BID [facility] Last Admin: 02/19/18 09:51 Dose: 0.4 mg
[2018-02-19] MEDS ORDERED: Lisinopril 10 MG TAB PO SCH (17:42)
--- NOTE | 2018-02-19 17:42 | PDOC.CTH ---
Cardiology Progress Note - Subjective He is doing well. - Objective Vital Signs Temp Pulse Resp BP Pulse Ox 02/19/18 16:21 97.5 F L 68 16 161/72 H 100 02/19/18 11:58 97.5 F L 63 16 151/73 H 97 02/19/18 07:55 97.5 F L 64 18 155/72 H 98 Admit Weight 191 lb 3.2 oz Weight 172 lb 1.6 oz 02/18/18 02/19/18 02/20/18 06:59 06:59 06:59 Intake Total 1210 860 Output Total 100 Balance 1110 860 - Physical Examination General/Neuro: alert & oriented x3, NAD Neck: no JVD present Lungs: CTA, unlabored respirations Heart: RRR Abdomen: NT/ND Extremities: + edema B (No edema) - Telemetry Telemetry Rhythm: NSR - Labs Result Diagrams: 02/14/18 05:21 02/19/18 04:25 Troponin/CKMB CK-MB (CK-2) 5.0 ng/mL (0-6.6) 02/13/18 09:16 Troponin I 0.016 ng/mL (< 0.028) 02/13/18 16:09 - Assessment/Plan 1. New onset dilated CM EF at 20-25% 2. Hyponatremia, improved. 3. Hx of CVA 4. Parkinsons 5. HTN PLAN: - Hyponatremia significantly improved. - He wants conservative therapy for his LV dysfunction. - He had his lifevest set up and neither him or his think he will be able to tolerate and they have declined. . - Will add aldactone. - May discharge any time from cardiac perspective. - Follow up in 2 months.
[2018-02-19] MEDS: Insulin Glargine 10 UNITS in Pre-Filled Syringe 1 EACH SC SCH (20:30)
--- NOTE | 2018-02-19 23:08 | PRG ---
DATE OF SERVICE: 02/19/2018 SUBJECTIVE: The patient was seen and examined with no new complaint, noted with the following vital signs. OBJECTIVE: VITAL SIGNS: Afebrile, temperature 97.5; pulse 68; respiratory rate of 16; O2 saturation of 100% with blood pressure of 161/72. HEENT: Unremarkable. Moist oral mucosa. No conjunctival injection or icterus. NECK: Supple. CARDIOVASCULAR SYSTEM: First and second heart sounds were heard. RESPIRATORY SYSTEM: Clear to auscultation. DIGESTIVE SYSTEM: Revealed a benign abdomen. Positive bowel sounds. EXTREMITIES: No peripheral edema. SKIN: No new gross rash. LYMPHATICS: No peripheral lymphadenopathy. LABORATORY INVESTIGATIONS: Significant for sodium of 133. IMPRESSION: 1. 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 2. Further management to be dependent on the clinical course. Job ID: [id number]
[2018-02-20 05:39] LABS: Anion Gap 10 mmol/L (10-20); BUN (Urea Nitrogen) 18 mg/dL (8.4-25.7); Calc. Creatinine Clearance 88 mL/min (70-130); Carbon Dioxide 24 mmol/L (23-31); Chloride 103 mmol/L (98-107); Estimated GFR-MDRD Greater than 90; Glucose 85 mg/dL (83-110); Sodium 133 mmol/L (136-145)
[2018-02-20] MEDS: Enoxaparin Sodium 40 MG/0.4 ML SYRINGE SC SCH (08:21)
[2018-02-20] MEDS: Carbidopa/Levodopa 25-100 mg Tablet PO SCH ×4 (08:21→21:09)
[2018-02-20] MEDS: Spironolactone 25 MG TAB PO SCH (08:22)
[2018-02-20] MEDS: Tamsulosin HCl 0.4 MG CAP PO SCH (08:22)
[2018-02-20] MEDS: metFORMIN 500 MG TAB PO SCH ×2 (08:22→16:04)
[2018-02-20] MEDS: Famotidine 20 MG TAB PO SCH ×2 (08:22→21:10)
[2018-02-20] MEDS: Fenofibrate Nanocrystallized 145 MG TAB PO SCH (08:22)
[2018-02-20] MEDS: Lisinopril 10 MG TAB PO SCH (08:22)
[2018-02-20] MEDS: Carvedilol 6.25 MG TAB PO SCH (08:41)
--- NOTE | 2018-02-20 11:47 | PDOC.PN ---
- Subjective Encounter Start Date: 02/20/18 Encounter Start Time: 11:00 Subjective: had syncopal episode this am while in the restroom -: had bradycardia with the episode which resolved -: is slowly waking up, moves all extremities - Objective Resuscitation Status - Order Detail: 02/13/18 13:33 Resuscitation Status Routine Resuscitation Status: DNAR: NO Resuscitation Discussed with: d/w patient at bedside, POA is his , he has living will MAR Reviewed: Yes Vital Signs & Weight: Vital Signs (12 hours) Temp Pulse Resp BP BP Pulse Ox 02/20/18 11:22 97.2 F L 64 20 144/68 H 99 02/20/18 08:26 99 02/20/18 08:06 97.7 F 76 20 169/81 H 99 02/20/18 04:14 97.3 F L 70 18 159/80 H 99 Weight Admit Weight 191 lb 3.2 oz Weight 174 lb 3.2 oz I&O: 02/19/18 02/20/18 02/21/18 06:59 06:59 06:59 Intake Total 860 1480 Balance 860 1480 Result Diagrams: 02/14/18 05:21 02/20/18 04:27 Additional Labs: Accuchecks 02/20/18 02/20/18 02/20/18 11:23 09:27 05:47 POC Glucose 109 196 H 94 02/19/18 02/19/18 20:25 16:42 POC Glucose 135 H 123 H Phys Exam - Physical Examination HEENT: PERRLA, sclera anicteric Neck: no JVD, supple Respiratory: no wheezing, no rales Cardiovascular: RRR, no significant murmur Gastrointestinal: soft, no distention, positive bowel sounds Musculoskeletal: no edema, pulses present Neurological: non-focal, moves all 4 limbs Dx/Plan (1) Acute exacerbation of CHF (congestive heart failure) Code(s): I50.9 - HEART FAILURE, UNSPECIFIED Status: Acute Qualifiers: Heart failure type: systolic Qualified Code(s): I50.23 - Acute on chronic systolic (congestive) heart failure Comment: ef of 20% (2) BPH (benign prostatic hyperplasia) Code(s): N40.0 - BENIGN PROSTATIC HYPERPLASIA WITHOUT LOWER URINRY TRACT SYMP Status: Chronic Qualifiers: Lower urinary tract symptom presence: symptoms present Lower urinary tract symptom detail: unspecified Qualified Code(s): N40.1 - Benign prostatic hyperplasia with lower urinary tract symptoms (3) HTN (hypertension) Code(s): I10 - ESSENTIAL (PRIMARY) HYPERTENSION Status: Chronic Qualifiers: Hypertension type: essential hypertension Qualified Code(s): I10 - Essential (primary) hypertension (4) Parkinson disease Code(s): G20 - PARKINSON'S DISEASE Status: Chronic Comment: stable, continue carbidopa/levodopa (5) DM2 (diabetes mellitus, type 2) Status: Chronic Qualifiers: Diabetes mellitus technician terminal and repeater insulin use: with retirement use Diabetes mellitus complication status: with unspecified complications Qualified Code(s) : E11.8 - Type 2 diabetes mellitus with unspecified complications; Z79.4 - predatory animal exterminator (current) use of insulin Comment: controlled (6) Hyponatremia Code(s): E87.1 - HYPO-OSMOLALITY AND HYPONATREMIA Status: Resolved (7) Myoclonic jerking Code(s): G25.3 - MYOCLONUS Status: Resolved Comment: sec to electrolyte abn resolved - Plan likely supine hypotension/vagal syncope with bradycardia resolving -: hold dc for today -: change flomax to daily, may hold spironolactone for 2 days and restart -: 1/2 liter bolus, did not want life vest per cardio -: gave updates to at bedside, continue coreg, asp, lisinopril * . Review of Systems - Medications/Allergies Allergies/Adverse Reactions: Allergies Allergy/AdvReac Type Severity Reaction Status Date / Time Penicillins Allergy Verified 02/14/18 00:03 Medications: Current Medications Acetaminophen (Tylenol) 650 mg PO Q4H PRN PRN Reason: Headache/Fever/Mild Pain (1-3) Albuterol Sulfate (Ventolin) 2.5 mg NEB [id number] PRN PRN Reason: Wheezing Aspirin (Aspirin Chewable) 81 mg PO DAILY [facility] Last Admin: 02/20/18 08:22 Dose: 81 mg Carbidopa/Levodopa (Sinemet 25-100) 2.5 tab PO QID [facility] Last Admin: 02/20/18 08:21 Dose: 2.5 tab Carvedilol (Coreg) 6.25 mg PO BID-WM [facility] Last Admin: 02/20/18 08:41 Dose: 6.25 mg Dextrose/Water (Dextrose 50%) 25 gm SLOW IVP PRN PRN PRN Reason: Hypoglycemia Enoxaparin Sodium (Lovenox) 40 mg SC 0900 [facility] Last Admin: 02/20/18 08:21 Dose: 40 mg Famotidine (Pepcid) 20 mg PO BID [facility] Last Admin: 02/20/18 08:22 Dose: 20 mg Fenofibrate (Tricor) 145 mg PO DAILY [facility] Last Admin: 02/20/18 08:22 Dose: 145 mg Glucagon (Glucagon) 1 mg IM PRN PRN PRN Reason: Hypoglycemia Guaifenesin/Dextromethorphan (Robitussin Dm) 15 ml PO Q4H PRN PRN Reason: Cough Dextrose/Water (D5w) 1,000 mls @ 0 mls/hr IV .Q0M PRN PRN Reason: Hypoglycemia Insulin Glargine 10 units/ (Miscellaneous Medication) 0.1 mls @ 0 mls/hr SC [facility] Last Admin: 02/19/18 20:30 Dose: 0.1 mls Insulin Human Lispro (Humalog) 0 units SC .MODERATE SLIDING SC PRN PRN Reason: Moderate Correctional Scale Lisinopril (Zestril) 10 mg PO DAILY [facility] Last Admin: 02/20/18 08:22 Dose: 10 mg Metformin HCl (Glucophage) 500 mg PO BID-[facility] Last Admin: 02/20/18 08:22 Dose: 500 mg Senna/Docusate Sodium (Senokot S) 2 tab PO BID PRN PRN Reason: Constipation Last Admin: 02/19/18 12:02 Dose: 2 tab Sodium Chloride (Flush - Normal Saline) 10 ml IVF Q12HR [facility] Last Admin: 02/20/18 08:23 Dose: 10 ml Sodium Chloride (Flush - Normal Saline) 10 ml IVF PRN PRN PRN Reason: Saline Flush Last Admin: 02/16/18 18:38 Dose: 10 ml Spironolactone (Aldactone) 12.5 mg PO QAM-[facility] Last Admin: 02/20/18 08:22 Dose: 12.5 mg Tamsulosin HCl (Flomax) 0.4 mg PO [facility]
[2018-02-20 12:46] VITALS: BMI 24.3
--- NOTE | 2018-02-20 14:58 | PDOC.CTH ---
Cardiology Progress Note - Subjective He had a syncopal spell this morning while trying to transfer to the commode. His HR went down to 20 bpm and he collapsed and was helped to the floor by a family member and the tech and lost consciousness. A code green was called and he eventually came back. No chest compressions had to be given. Currently doing well without complaints. - Objective Vital Signs Temp Pulse Resp BP BP BP BP 02/20/18 14:38 145/65 H 145/66 H 156/60 H 02/20/18 11:22 97.2 F L 64 20 144/68 H 02/20/18 08:26 02/20/18 08:06 97.7 F 76 20 169/81 H 02/20/18 04:14 97.3 F L 70 18 159/80 H Pulse Ox 02/20/18 14:38 02/20/18 11:22 99 02/20/18 08:26 99 02/20/18 08:06 99 02/20/18 04:14 99 Admit Weight 191 lb 3.2 oz Weight 174 lb 3.2 oz 02/19/18 02/20/18 02/21/18 06:59 06:59 06:59 Intake Total 860 1480 Balance 860 1480 - Physical Examination General/Neuro: NAD Neck: no JVD present Lungs: CTA, unlabored respirations Heart: RRR Abdomen: NT/ND Extremities: other: (no edema) - Telemetry Telemetry Rhythm: NSR - Labs Result Diagrams: 02/14/18 05:21 02/20/18 04:27 Troponin/CKMB CK-MB (CK-2) 5.0 ng/mL (0-6.6) 02/13/18 09:16 Troponin I 0.016 ng/mL (< 0.028) 02/13/18 16:09 - Assessment/Plan 1. New onset dilated CM EF at 20-25% 2. Hyponatremia, improved. 3. Hx of CVA 4. Parkinsons/Alzheimer 5. HTN 6. Bradycardia. PLAN: - He wants conservative therapy for his LV dysfunction. - Continue ACEI and aldactone. - Will stop Coreg due to his episode of bradycardia earlier this morning. - Observe overnight.
[2018-02-20] MEDS ORDERED: Tamsulosin HCl 0.4 MG CAP PO SCH (21:00)
[2018-02-20] MEDS: Insulin Glargine 10 UNITS in Pre-Filled Syringe 1 EACH SC SCH (22:05)
[2018-02-21 05:40] LABS: Anion Gap 10 mmol/L (10-20); BUN (Urea Nitrogen) 15 mg/dL (8.4-25.7); Calc. Creatinine Clearance 91 mL/min (70-130); Calcium 9.1 mg/dL (7.8-10.44); Carbon Dioxide 24 mmol/L (23-31); Chloride 105 mmol/L (98-107); Estimated GFR-MDRD Greater than 90; Glucose 82 mg/dL (83-110); Potassium 4.4 mmol/L (3.5-5.1); Sodium 135 mmol/L (136-145)
[2018-02-21] MEDS: Fenofibrate Nanocrystallized 145 MG TAB PO SCH (09:22)
[2018-02-21] MEDS: Lisinopril 10 MG TAB PO SCH (09:22)
[2018-02-21] MEDS: Spironolactone 25 MG TAB PO SCH (09:22)
[2018-02-21] MEDS: Carbidopa/Levodopa 25-100 mg Tablet PO SCH ×2 (09:22→13:36)
[2018-02-21] MEDS: Famotidine 20 MG TAB PO SCH (09:22)
[2018-02-21] MEDS: metFORMIN 500 MG TAB PO SCH (09:23)
[2018-02-21] MEDS: Enoxaparin Sodium 40 MG/0.4 ML SYRINGE SC SCH (09:23)
[2018-02-21 11:55] VITALS: TEMP 97.5
--- NOTE | 2018-02-21 12:07 | PDOC.PN ---
- Subjective Encounter Start Date: 02/21/18 Encounter Start Time: 07:15 Subjective: still waking up, no sob or chest pain -: is moving all extre - Objective Resuscitation Status - Order Detail: 02/13/18 13:33 Resuscitation Status Routine Resuscitation Status: DNAR: NO Resuscitation Discussed with: d/w patient at bedside, [place] is his , he has living will MAR Reviewed: Yes Vital Signs & Weight: Vital Signs (12 hours) Temp Pulse Resp BP Pulse Ox 02/21/18 11:52 97.5 F L 66 17 136/83 99 02/21/18 07:19 98.3 F 72 15 150/70 H 99 02/21/18 04:00 97.6 F 72 20 140/66 98 Weight Admit Weight 191 lb 3.2 oz Weight 171 lb I&O: 02/20/18 02/21/18 02/22/18 06:59 06:59 06:59 Intake Total 1480 1080 Output Total 1615 Balance 1480 -535 Result Diagrams: 02/14/18 05:21 02/21/18 04:27 Additional Labs: Accuchecks 02/21/18 02/21/18 02/20/18 10:45 05:10 20:09 POC Glucose 127 H 82 112 H 02/20/18 17:17 POC Glucose 93 Phys Exam - Physical Examination HEENT: PERRLA, moist MMs Neck: no JVD, supple Respiratory: no wheezing, no rales Cardiovascular: RRR, no significant murmur Gastrointestinal: soft, non-tender, positive bowel sounds Musculoskeletal: no edema, pulses present Neurological: non-focal, moves all 4 limbs Dx/Plan (1) Acute exacerbation of CHF (congestive heart failure) Code(s): I50.9 - HEART FAILURE, UNSPECIFIED Status: Acute Qualifiers: Heart failure type: systolic Qualified Code(s): I50.23 - Acute on chronic systolic (congestive) heart failure Comment: ef of 20% (2) BPH (benign prostatic hyperplasia) Code(s): N40.0 - BENIGN PROSTATIC HYPERPLASIA WITHOUT LOWER URINRY TRACT SYMP Status: Chronic Qualifiers: Lower urinary tract symptom presence: symptoms present Lower urinary tract symptom detail: unspecified Qualified Code(s): N40.1 - Benign prostatic hyperplasia with lower urinary tract symptoms (3) HTN (hypertension) Code(s): I10 - ESSENTIAL (PRIMARY) HYPERTENSION Status: Chronic Qualifiers: Hypertension type: essential hypertension Qualified Code(s): I10 - Essential (primary) hypertension (4) Parkinson disease Code(s): G20 - PARKINSON'S DISEASE Status: Chronic Comment: stable, continue carbidopa/levodopa (5) DM2 (diabetes mellitus, type 2) Status: Chronic Qualifiers: Diabetes mellitus middle or intermediate school principal insulin use: with middle or intermediate school principal use Diabetes mellitus complication status: with unspecified complications Qualified Code(s) : E11.8 - Type 2 diabetes mellitus with unspecified complications; Z79.4 - ocean transportation intermediary (current) use of insulin Comment: controlled (6) Hyponatremia Code(s): E87.1 - HYPO-OSMOLALITY AND HYPONATREMIA Status: Resolved (7) Myoclonic jerking Code(s): G25.3 - MYOCLONUS Status: Resolved Comment: sec to electrolyte abn resolved - Plan ambulated this am around 10am with PT, is oriented -: will dc to [facility] -: coreg may be added later when appropriate * .
--- NOTE | 2018-02-21 12:34 | PDOC.CTH ---
Cardiology Progress Note - Subjective He is dong well. No new issues. He has not has nay more episodes of bradycardia since stopping Coreg. - Objective Vital Signs Temp Pulse Resp BP Pulse Ox 02/21/18 11:52 97.5 F L 66 17 136/83 99 02/21/18 07:19 98.3 F 72 15 150/70 H 99 02/21/18 04:00 97.6 F 72 20 140/66 98 Admit Weight 191 lb 3.2 oz Weight 171 lb 02/20/18 02/21/18 02/22/18 06:59 06:59 06:59 Intake Total 1480 1080 Output Total 1615 Balance 1480 -535 - Physical Examination General/Neuro: NAD Neck: no JVD present Lungs: CTA, unlabored respirations Heart: RRR Abdomen: NT/ND Extremities: other: (no edema) - Telemetry Telemetry Rhythm: NSR - Labs Result Diagrams: 02/14/18 05:21 02/21/18 04:27 Troponin/CKMB CK-MB (CK-2) 5.0 ng/mL (0-6.6) 02/13/18 09:16 Troponin I 0.016 ng/mL (< 0.028) 02/13/18 16:09 - Assessment/Plan 1. New onset dilated CM EF at 20-25% 2. Hyponatremia, improved. 3. Hx of CVA 4. Parkinsons/Alzheimer 5. HTN 6. Bradycardia. PLAN: - He wants conservative therapy for his LV dysfunction. - Continue ACEI and aldactone. - Continue to hold Coreg or any AV contreras blocking agents due to bradycardia. - May discharge. - Follow up in the office in 1 month.
[2018-02-21 12:40] VITALS: BP 191/84
--- NOTE | 2018-02-21 16:18 | DIS ---
DATE OF ADMISSION: 02/13/2018 DATE OF DISCHARGE: 02/21/2018 DISCHARGE DISPOSITION: To [facility]. PRIMARY DIAGNOSES: Acute congestive heart failure exacerbation with systolic dysfunction, class C with ejection fraction of around 20%; hyponatremia on arrival, resolved; myoclonic jerking due to electrolyte abnormalities, resolved; hypertension; Parkinson disease; diabetes mellitus, type 2; benign prostatic hypertrophy. PROCEDURES DONE DURING HOSPITALIZATION: The patient had chest x-ray done which showed pulmonary vascular congestion with cardiomegaly. Echo with 2D Doppler showed EF of 20% to 25% with severe global hypokinesis. He had diastolic dysfunction, moderately dilated left atrium, moderate pulmonic regurgitation. RV systolic pressures were estimated to be 30 mmHg. MRI brain showed no acute infarct or hemorrhage. Influenza A and B antigens were negative. H and H 9 and 26, platelet count 217, MCV 85 with 76% neutrophils. Discharge BUN and creatinine 15 and 0.7. Discharge sodium is 135. Admitting sodium levels were 116. TSH 2.0. BNP 1872. Troponin I indeterminate, peaking up to 0.032 with CK-MB of 5.0. DISCHARGE MEDICATIONS: 1. Aspirin 81 mg p.o. daily. 2. Sinemet home dose 2-1/2 tablets four times daily. 3. Fenofibrate 145 mg p.o. daily. 4. Lantus 10 units subcu at bedtime. 5. Metformin 500 mg p.o. twice daily. 6. Omeprazole 20 mg daily. 7. Flomax 0.4 mg p.o. at bedtime. 8. Ferrous sulfate 325 mg p.o. daily. 9. Lisinopril 10 mg p.o. daily. ALLERGIES: ALLERGIC TO PENICILLIN. INPATIENT CONSULTS: 1. Dr. Mary for Cardiology. 2. Dr. Solano for Nephrology. DISCHARGE PLAN: The patient to follow up with Dr. Mary in 4 weeks, primary care physician in one week. BRIEF COURSE DURING HOSPITALIZATION: The patient initially got admitted on the 13 of February with complaints of shortness of breath. He was found to be in acute CHF exacerbation based on clinical imaging and lab studies. He has had echo with 2D Doppler done, which showed EF of 20% to 25% with global hypokinesis. He was gently diuresed during his stay here. The patient initially had very low sodium levels of 116. He has had consultation with Dr. Pocahontas for the same. The patient was on conivaptan for a total of 3 doses, which corrected his sodium levels back to normal. He also had myoclonic jerking due to electrolyte abnormalities, which got completely resolved. His medications were optimized during his stay here. On the , the patient had a vasovagal episode with heart rates going down to 30s. In view of this, his beta-danya Coreg was discontinued by Cardiology. This needs to be reinstituted when he is more stable after he finishes his physical therapy at the [facility]. The patient has refused LifeVest placement. He is otherwise hemodynamically stable and will be shortly discharged to [facility]. This morning he is awake, alert, oriented, and is ambulating. A total of 35 minutes was spent on discharge plan. Please see a [id number] documentation for the day of discharge on [employer]. Job ID: [id number] MTDD
--- NOTE | 2018-02-23 20:29 | EKG ---
Test Reason : CODE GREEN Blood Pressure : / mmHG Vent. Rate : 060 BPM Atrial Rate : 060 BPM P-R Int : 182 ms QRS Dur : 122 ms QT Int : 444 ms P-R-T Axes : 027 057 -72 degrees QTc Int : 444 ms Normal sinus rhythm Inferior infarct (cited on or before 08-MAY-2007) Abnormal ECG When compared with ECG of 13-FEB-2018 08:52, No significant change was found Confirmed by Niall OWENS ([id number]) on 02/23/2018 8:29:32 PM Referred By: MIKAYLA Confirmed By:Niall OWENS
== END 2018-02-21 15:22 | DRG 291 ==
LOC: ERS 08:44 → ERHOLD 11:05 → 2NO 18:34
PROVIDERS: ADMIT Internal Medicine; ATTEND Internal Medicine
DX: I11.0 Hypertensive heart disease with heart failure (principal); I50.21 Acute systolic (congestive) heart failure; I24.8 Other forms of acute ischemic heart disease; E22.2 Syndrome of inappropriate secretion of antidiuretic hormone; E11.9 Type 2 diabetes mellitus without complications; G20 Parkinson's disease; G25.3 Myoclonus; I42.0 Dilated cardiomyopathy; G30.9 Alzheimer's disease, unspecified; F02.80 Dementia in other diseases classified elsewhere, unspecified severity, without behavioral disturbance, psychotic disturbance, mood disturbance, and anxiety; L89.152 Pressure ulcer of sacral region, stage 2; Z66 Do not resuscitate; Z86.73 Personal history of transient ischemic attack (TIA), and cerebral infarction without residual deficits; Z88.0 Allergy status to penicillin; Z79.899 Other long term (current) drug therapy; Z79.4 Long term (current) use of insulin; Z79.82 Long term (current) use of aspirin
CPT/HCPCS: 36415; 36416; 70551; 71045; 80048; 80053; 81003; 82553; 83880; 83935; 84300; 84443; 84484; 85025; 87804; 93005; 93010; 93306; 93798; 94640; 96374; J1650; J1940; J7620